=== PATIENT | female | born 1965 | race African-American/Black ===

== ENCOUNTER 2019-03-25 11:49 | Emergency (ER) | payer MEDICARE, MEDICAID ==
[~2019-03-25] VITALS: Ht 154.9 cm; Wt 40.8 kg
[2019-03-25] MEDS ORDERED: LIPITOR 20 MG T20 M1 PO (12:20)
[2019-03-25] MEDS ORDERED: SUPER THERAVIT1 EACH PO (12:21)
[2019-03-25] MEDS ORDERED: CALCIUM MAGNES1 EAC2 PO (12:21)
[2019-03-25] MEDS ORDERED: NASONEX17 GM NASAL (12:21)
[2019-03-25] MEDS ORDERED: IBUPROFEN100 MG/5 M PO (12:23)
[2019-03-25] MEDS ORDERED: SENNA PLUS TAB1 EACH PO (12:23)
[2019-03-25] MEDS ORDERED: MUCINEX600 MG PO (12:23)
[2019-03-25] MEDS ORDERED: MONTELUKAST SODI4 M1 PO (12:24)
[2019-03-25] MEDS ORDERED: LOPERAMIDE2 MG PO (12:28)
[2019-03-25] MEDS ORDERED: VITAMIN C250 MG PO (12:30)
[2019-03-25] MEDS ORDERED: TYLENOL COLD M240 ML PO (12:30)
[2019-03-25] MEDS ORDERED: CLONIDINE HCL0.2 M2 PO (12:31)
[2019-03-25] MEDS ORDERED: COUGH DM30 MG/5 ML PO (12:32)
[2019-03-25] MEDS ORDERED: AZO CRANBERRY1 EAC1 PO (12:32)
[2019-03-25] MEDS ORDERED: TOLTERODINE TART4 MG PO (12:33)
[2019-03-25] MEDS ORDERED: VITAMIN D35000 UNI2 PO (12:34)
[2019-03-25] MEDS ORDERED: DIVALPROEX SOD250 M3 PO (12:35)
[2019-03-25] MEDS ORDERED: TRIAMTERENE/HCT1 CA1 PO (12:37)
[2019-03-25] MEDS ORDERED: TOPIRAMATE50 MG PO (12:38)
[2019-03-25 12:49] LABS: ABSOLUTE MONOCYTES 0.7 thou/uL (0.0-1.2); ABSOLUTE NEUTROPHILS 6.3 thou/uL (1.6-8.1); BASOPHILS 0.4 %; EOSINOPHILS 0.1 %; HEMATOCRIT 40.3 % (37.0-47.0); HEMOGLOBIN 13.5 gm/dL (12.0-15.0); LYMPHOCYTES 12.9 %; MCHC 33.5 g/dL (28.0-37.0); MCV 92.6 fL (80.0-100.0); MONOCYTES 8.6 %; MPV 9.4 fl. (7.2-11.1); NUCLEATED RBCS 0 /100WBC; PLATELET COUNT* 168 thou/uL (150-400); RBC 4.35 mil/uL (4.20-5.00); RDW-CV 17.1 % (10.5-14.5)
[2019-03-25 12:58] LABS: CALCIUM 9.7 mg/dL (8.5-10.1); POTASSIUM 3.8 mmol/L (3.5-5.1)
[2019-03-25 13:02] LABS: APTT 24.5 Seconds (25.0-31.3); INR 1.1; PROTIME 11.4 Seconds (9.20-11.50)
[2019-03-25 13:03] LABS: TOTAL BILIRUBIN 0.4 mg/dL (<0.1-1.0); TOTAL PROTEIN 8.9 g/dL (6.4-8.2)
[2019-03-25] MEDS ORDERED: OXYCODONE HCL 55 MG PO (15:44)
[2019-03-25] MEDS ORDERED: BACLOFEN5 MG PO (15:44)
[2019-03-25 16:02] VITALS: BP 177/95
== END 2019-03-25 16:03 | disposition home or self-care (01) ==
LOC: M.ERS 11:49
PROVIDERS: Personal Emergency Response Attendant
DX: M79.652 Pain in left thigh (principal); M79.89 Other specified soft tissue disorders; Z88.5 Allergy status to narcotic agent; Z88.8 Allergy status to other drugs, medicaments and biological substances

== ENCOUNTER 2019-04-01 11:45 | Inpatient (IN) | payer MEDICARE, MEDICAID ==
[~2019-04-01] VITALS: Ht 152.4 cm; Wt 45.5 kg
[~2019-04-01 11:45] MED LIST: AZO CRANBERRY1 EAC1 PO; BACLOFEN5 MG PO; CALCIUM MAGNES1 EAC2 PO; CLONIDINE HCL0.2 M2 PO; COUGH DM30 MG/5 ML PO; DIVALPROEX SOD250 M3 PO; IBUPROFEN100 MG/5 M PO; LIPITOR 20 MG T20 M1 PO; LOPERAMIDE2 MG PO; MONTELUKAST SODI4 M1 PO; MUCINEX600 MG PO; NASONEX17 GM NASAL; OXYCODONE HCL 55 MG PO; SENNA PLUS TAB1 EACH PO; SUPER THERAVIT1 EACH PO; TOLTERODINE TART4 MG PO; TOPIRAMATE50 MG PO; TRIAMTERENE/HCT1 CA1 PO; TYLENOL COLD M240 ML PO; VITAMIN C250 MG PO; VITAMIN D35000 UNI2 PO
[2019-04-01 11:50] VITALS: BP 113/75
[2019-04-01 12:46] LABS: ABSOLUTE LYMPHOCYTES 0.8 thou/uL (0.8-5.3); ABSOLUTE MONOCYTES 1.4 thou/uL (0.0-1.2); BASOPHILS 0.4 %; EOSINOPHILS 0.1 %; HEMATOCRIT 37.1 % (37.0-47.0); HEMOGLOBIN 12.4 gm/dL (12.0-15.0); MCH 30.4 pg (26.0-34.0); MCHC 33.4 g/dL (28.0-37.0); MCV 91.3 fL (80.0-100.0); MONOCYTES 13.7 %; MPV 8.3 fl. (7.2-11.1); NUCLEATED RBCS 0 /100WBC; PLATELET COUNT* 221 thou/uL (150-400); POLYS 77.8 %; RBC 4.06 mil/uL (4.20-5.00); RDW-CV 16.7 % (10.5-14.5); WBC 10.3 thou/uL (4.0-11.0)
[2019-04-01 12:57] LABS: CALCIUM 8.7 mg/dL (8.5-10.1); CREATININE 0.8 mg/dL (0.6-1.3); POTASSIUM 3.5 mmol/L (3.5-5.1)
[2019-04-01 13:02] LABS: TOTAL BILIRUBIN 0.3 mg/dL (<0.1-1.0); TOTAL PROTEIN 7.1 g/dL (6.4-8.2)
[2019-04-01 16:44] LABS: INR 1.4; PROTIME 14.5 Seconds (9.20-11.50)
--- NOTE | 2019-04-01 17:32 | NUR ---
PT'S GUARDIAN AT PT'S SIDE. PT'S GUARDIAN REQUESTING PT BE TRANSFERED STATING "THAT HER CARE WAS MISHANDLED LAST TIME AND IF SHE NEEDS SURGERY SHE WANTS IT DONE AT A PLACE WHERE THIS TYPE OF SURGERY IS DONE."
[2019-04-01 18:39] VITALS: BP 112/85
[2019-04-01 20:55] VITALS: BP 102/65
[2019-04-01 21:30] VITALS: BP 108/80
--- NOTE | 2019-04-01 22:30 | NUR ---
2100 ALERT DEAF/MUTE FEMALE TO BED 116 ACCOMPANIED BY GUARDIAN MILAGROS ARZATE ADMITTED FROM ER BY CART. VITAL SIGNS STABLE. MEDICATED FOR PAIN. ADMISSION ROUTINES IN PROGRESS. MILAGROS ARZATE WILL STAY WITH PATIENT TONIGHT. COPY OF GUARDIAN PAPERS TO CHART. IDENITY OF GUARDIAN VERIFIED BY PHOTO ID. FALL PRECAUTIONS IN PLACE WITH RAILS UP X 4 REQUESTED AND BED ALARM UTILIZED. PATIENT DOES NOT READ LIPS, THUS ALL COMMUNICATION THRU GUARDIAN USING SIGN LANGUAGE. PATIENT AND GUARDIAN ORIENTED TO BED CONTROLS, LIGHTS AND CALL LIGHT SYSTEM. PLAN OF CARE REVIEWED WITH GUARDIAN WHO ACKNOWLEDGES UNDERSTANDING AND IN AGREEMENT. GUARDIAN PLEASANT AND VERY HELPFUL IN PATIENT CARE. CONTINUE TO MONITOR.
[2019-04-02 04:00] VITALS: BP 117/74
--- NOTE | 2019-04-02 04:32 | NUR ---
PATIENT RESTING QUIETLY FROM ARRIVAL AFTER PAIN MEDICATION. PATIENT CURRENTLY UNABLE TO TURN LONGER THAN FOR LINEN CHANGES AFTER INCONT DUE TO LEFT FEMUR FRACTURE PAIN. NPO PER ORDER EXCEPT HS MEDS WITH SIPS. PATIENT ABLE TO SWALLOW MEDS WHOLE WITH LIQUID PROVIDED WITH STRAW. VITAL SIGNS STABLE. GUARDIAN MILAGROS AT BEDSIDE ASSISTING WITH COMMUNICATION. IVF'S PER ORDER. CONTINUE TO MONITOR.
[2019-04-02 08:27] VITALS: BP 105/61
--- NOTE | 2019-04-02 09:18 | NUR ---
[facility] CALLED AT THIS TIME AND STATES NO BED AVAILABLE FOR TRANSFER AT THIS TIME.
--- NOTE | 2019-04-02 11:32 | NUR ---
CM ASSESSMENT: PAPERWORK ON CHART FROM ER RE TRANSFER TO [facility]. SPOKE TO TRANSFER FACILITY AT [facility]. THERE IS AN ACCEPTING PHYSICIAN BUT NO BEDS AVAILABLE. SPOKE TO MILAGROS WHO IS PT'S DPOA AND PRESENTED OTHER OPTIONS SUCH PROCEEDING WITH SURGERY HERE OR TRANSFERRING TO ANOTHER FACILITY INSTEAD OF [facility] SO THAT SURGERY IS NOT FURTHER DELAYED. MILAGROS STATES SHE WILL RESEARCH ORTHO AT BOTH FACILITIES AND CALL BACK WITH A PREFERENCE SOON
--- NOTE | 2019-04-02 13:02 | NUR ---
RECEIVED CALL FROM MILAGROS WHO IS PT'S DPOA. SHE SAID SHE HAS DECIDED SHE WOULD LIKE TO PROCEED WITH PT HAVING SURGERY HERE AT [facility] BUT WOULD LIKE TO RECEIVE A PHONE CALL FROM SURGEON WHEN IT IS DECIDED. WILL NOTIFY DR URIBE AND NURSE
--- NOTE | 2019-04-02 13:16 | NUR ---
Nutrition: Pt admitted s/p Lt femur FX. H/o cerebral palsy, deaf, mute. BG 164, alb 2, prealb 8.4. Severely depleted protein stores. Pt is currently NPO. Wt is 89#. Seen for low BMI. Per notes, pt will be transferring to [facility]. No nutrition interventions at this timesince pt still NPO and transferring. Recommend oral supplement for added kcals and protein once pt is clinically able to take po. Moderate risk.
--- NOTE | 2019-04-02 15:34 | NUR ---
PT SOMEWHAT PROGRESSING TOWARDS GOALS THIS SHIFT. CASE MANAGEMENT DISCUSSED PLAN OF CARE WITH GUARDIAN, AND D/T [facility] NOT HAVING ANY BEDS AVAILABLE, THE GUARDIAN HAS DECIDED TO LEAVE PT HERE AT [facility] AND FOR OUR ORTHO SURGEONS TO OPERATE HERE. ORTHO PHYSICIAN NOTIFIED ALTHOUGH UNABLE TO COMPLETE SURGERY THIS AFTERNOON. SCHEDULED FOR TOMORROW AM. PT HAS CARETAKERS AT BEDSIDE THAT ARE ABLE TO COMMUNICATE EFFECTIVELY WITH PT. CARETAKERS EDUCATED TO NOTIFY STAFF IF PT EXPRESSES ANY NEEDS. PT TO BE NPO AFTER MIDNIGHT. NO OTHER CONCERNS AT THIS TIME. CLWR. WCTM.
--- NOTE | 2019-04-02 15:56 | NUR ---
DR. PARSONS CALLED THIS RN AND REQUESTED THE GUARDIAN CONTACT HIM TO DISCUSS PLAN OF CARE.
[2019-04-02 16:00] VITALS: BP 142/66
[2019-04-02 20:07] VITALS: BP 105/81
[2019-04-02 20:33] VITALS: BP 106/56
--- NOTE | 2019-04-03 05:37 | NUR ---
PATIENT HAD GUARDIAN IN ROOM ALL NIGHT. SHE IS A Q2 TURN AND INCONTINENT USING PADS UNDER FOR URINATION. SHE RECEIVED FENTANYL SEVERAL TIMES FOR APPARENT PAIN AND FLUIDS ON AT 100 MLS ALL SHIFT. HAS BEEN NPO SINCE MIDNIGHT BUT NO ORDERS YET FOR SURGERY. WILL CONTINUE PLAN OF CARE.
[2019-04-03 08:00] VITALS: BP 116/70
--- NOTE | 2019-04-03 10:47 | NUR ---
SPOKE WITH PT'S GUARDIAN MILAGROS IN ROOM. DISCUSSED THAT PT WILL NEED TO GO TO SNU UPON DC. MILAGROS DOES NOT HAVE A PREFERENCE WITH FACILITIES AND STATES SHE WANTS ONE THAT IS COMFORTABLE WITH SPECIAL NEEDS ADULTS AND IS CLOSE TO FACILITY
--- NOTE | 2019-04-03 12:23 | NUR ---
ASSUMED CARE OF PATIENT THIS AM AT 0730. PATIENT IS AWAKE,ALERT AND APPEARS IN PAIN THIS AM. PATIENT IS GRIMMACING. CAREGIVER IS AT THE BEDSIDE. PATIENT MEDICATED FOR PAIN Q 2 HR AND REPOSITIONED. KEPT NPO FOR PLANNED SURGERY. IV FLUIDS INFUSING. DR URIBE PAGED FOR ORDERS FOR CHANGE IN PAIN MEDICATION. WILL CONTINUED TO ASSESS PAIN AND COMFORT.
--- NOTE | 2019-04-03 16:05 | NUR ---
LEVEL [address] URIBE AWARE. NO DC PLAN FOR THE NEXT COUPLE DAYS. CM WILL CONTINUE TO FOLLOW
[2019-04-03 18:34] LABS: BE -4.5 mmol/L (-2 to +3); PO2 91.4 mmHg (75.0-100.0)
[2019-04-03 18:37] LABS: PCO2 54.5 mmHg (35.0-45.0); pH 7.239 (7.340-7.450)
[2019-04-03 19:47] VITALS: BP 112/65
[2019-04-03 23:04] VITALS: BP 118/81
[2019-04-04] VITALS (28 sets, daily range): BP systolic 83–145; BP diastolic 42–91
[2019-04-04 02:51] LABS: HEMATOCRIT 22.7 % (37.0-47.0)
[2019-04-04 02:58] LABS: HEMOGLOBIN 7.6 gm/dL (12.0-15.0)
--- NOTE | 2019-04-04 05:19 | NUR ---
VITALS STABLE, TEMP MAX 100.9F TREATED WITH TYLENOL. PATIENT MOANS AND GROANS FROM TIME TO TIME, IS NONVERBAL AND UNABLE TO EXPRESS SELF. VERY SMALL BLOOD NOTED TO L HIP SITE OVER DRESSING THIS AM. HIPS REMAIN ABDUCTED VIA BRACE. TYSON PLACED PER ORDER. 400CC, YELLOW UOP. NO BM. Q2 TURNS FOR SKIN INTEGRITY. GUARDIAN REMAINS IN ROOM FOR COMFORT. WILL CONTINUE MONITORING.
[2019-04-04 08:26] LABS: BE -2.1 mmol/L (-2 to +3); PCO2 39.6 mmHg (35.0-45.0); PO2 86.4 mmHg (75.0-100.0); pH 7.379 (7.340-7.450)
--- NOTE | 2019-04-04 10:30 | NUR ---
INT ROUNDS: PT TRANSFERRED TO ICU POST SURGERY YESTERDAY. PT IS DEAF/MUTE, MET WITH GUARDIAN/MILAGROS AT BEDSIDE TO DISCUSS DC PLANNING/[id number]. MILAGROS STATED PT LIVES IN APT WITH A ROOMMATE AND 24HR CAREGIVERS THRU [facility]. SHE IS NORMALLY ABLE TO TRANSFER SELF FROM BED TO W/C AND TOILET. ABLE TO ASSIST WITH HER TOILETING, BATHING, DRESSING AND COMMUNICATE HER NEEDS WITH SOME SIGN LANGUAGE AND GESTURING. HAS HX OF CP AND DD. PT HAS NOT BEEN TO SNF IN PAST. MILAGROS IS INTERESTED IN THAT FOR REHAB BUT WANTING TO BE SURE FACILITY IS 'RIGHT' FOR PT. DISCUSSED POSSIBLE OPTIONS AND GAVE LIST. ENCOURAGED HER TO USE MEDICARE.GOV WELL. QUESTIONS ANSWERED FOR [id number], ONCE FACILITY IS CHOSEN WILL PURSUE. DO NOT ANTICIPATE PT WILL NEED MOVE THEN 30D. WILL FOLLOW
[2019-04-04] MEDS ORDERED: SINGULAIR 10 MG10 MG PO (10:56)
[2019-04-04] MEDS ORDERED: TRIPLE ANTIBIO1 EAC1 TOP (11:03)
[2019-04-04] MEDS ORDERED: EPSOM SALT454 GM TOP (11:06)
[2019-04-04] MEDS ORDERED: AZO CRANBERRY1 EAC1 PO (11:08)
[2019-04-04] MEDS ORDERED: TUSSIN CF COUG118 ML PO (11:10)
[2019-04-04 11:45] LABS: INR 1.5; PROTIME 14.7 Seconds (9.20-11.50)
[2019-04-04 11:50] LABS: ALBUMIN 1.4 g/dL (3.4-5.0); CALCIUM 7.5 mg/dL (8.5-10.1); CREATININE 0.6 mg/dL (0.6-1.3); POTASSIUM 4.2 mmol/L (3.5-5.1); TOTAL BILIRUBIN 0.2 mg/dL (<0.1-1.0); TOTAL PROTEIN 4.7 g/dL (6.4-8.2)
--- NOTE | 2019-04-04 14:11 | EKG ---
[place] [address] ELECTROCARDIOGRAM REPORT Name: JIN MATAMOROS Room: [address] ADM IN .R.#: [id number] Admission: 04/01/19 Attend Phys: Isabella Quinn Discharge: Date of : 63 Report #: [id number] THIS REPORT FOR: //name// [facility] Test Date: 2019-04-04 Test Time: 12:22:57 Pat Name: JIN MATAMOROS Department: Room: [address] Gender: F Medical Illustrator: [facility] : 1965 Requested By: Obdulio Monzon Order Number: [id number] Yaneli MD: Bayron Osman Measurements Intervals Hartman Rate: 116 P: -16 CO: 158 QRS: 62 QRSD: 75 T: 6 QT: 281 QTc: 391 Interpretive Statements Sinus tachycardia Low voltage, extremity leads Consider RVH or posterior infarct Artifact in lead(s) II,III,aVR,aVL,aVF,V1,V2,V3,V4 and baseline wander in lead (s) II,V1,V2 No previous ECG available for comparison Electronically Signed On 04-04-2019 14:10:45 THERAPIST by Bayron Osman [email or web address] <ELECTRONICALLY SIGNED> By: Bayron Osman MD, FACC 04/04/19 1410 1222 1222 Bayron Osman MD, [facility] /EPI
--- NOTE | 2019-04-04 15:35 | 2DMMODE ---
[place] [address] 2 D/M-MODE ECHOCARDIOGRAM Name: JIN MATAMOROS Room: [address] IN [facility]#: [id number] Admission: 04/01/19 Attend Phys: Obdulio Monzon Discharge: Date of : 63 Date of Service: 04/04/19 1534 Report #: [id number] THIS REPORT FOR: //name// APPROVED REPORT Study performed: 04/04/2019 14:34:35 EXAM: Comprehensive 2D, Doppler, and color-flow Echocardiogram Patient Location: In-Patient Room #: [facility] [place] Status: routine BSA: 1.45 HR: 131 bpm BP: 125/56 mmHg Rhythm: NSR Other Information Study Quality: Good Indications Abnormal ECG 2D Dimensions IVSd: 7.66 (7-11mm) LVOT Diam: 17.96 (18-24mm) LVDd: 29.85 mm PWd: 7.05 (7-11mm) Ascending Ao: 23.74 (22-36mm) LVDs: 22.44 (25-40mm) Aortic Root: 23.51 mm Volumes Left Atrial Volume (Systole) LA ESV Index: 15.10 mL/m2 Aortic Valve AoV Peak Brijesh.: 1.13 m/s AO Peak Gr.: 5.12 mmHg LVOT Max P.17 mmHg AO Mean Gr.: 2.52 mmHg LVOT Mean P.17 mmHg LVOT Max V: 1.02 m/s AO V2 VTI: 14.04 cm LVOT Mean V: 0.68 m/s ENMANUEL (VTI): 2.39 cm2 LVOT V1 VTI: 13.21 cm TDI Medial E' Brijesh.: 0.11 m/s Lateral E' Brijesh.: 0.11 m/[place] [address] 2 D/M-MODE ECHOCARDIOGRAM Name: JIN MATAMOROS Room: [address] IN [facility]#: [id number] Admission: 04/01/19 Attend Phys: Obdulio Monzon Discharge: Date of : 63 Date of Service: 04/04/19 1534 Report #: [id number] Pulmonary Valve PV Peak Brijesh.: 1.15 m/s PV Peak Gr.: 5.25 mmHg Left Ventricle The left ventricle is normal size. There is normal LV segmental wall motion. There is normal left ventricular wall thickness. Left ventricular systolic function is normal. LVEF is 65-70%. Grade I - abnormal relaxation pattern. Right Ventricle The right ventricle is normal size. The right ventricular systolic function is normal. Atria The left atrium size is normal. The right atrium size is normal. Aortic Valve The aortic valve is normal in structure. No aortic regurgitation is present. There is no aortic valvular stenosis. Mitral Valve The mitral valve is normal in structure. There is no mitral valve regurgitation noted. No evidence of mitral valve stenosis. Tricuspid Valve The tricuspid valve is normal in structure. Unable to assess PA pressure. Trace tricuspid regurgitation. Pulmonic Valve The pulmonary valve is normal in structure. There is no pulmonic valvular regurgitation. Great Vessels The aortic root is normal in size. IVC is normal in size and collapses >50% with inspiration. Pericardium There is no pericardial effusion. <Conclusion> The left ventricle is normal size. There is normal left ventricular wall thickness. Left ventricular [place] [address] 2 D/M-MODE ECHOCARDIOGRAM Name: JIN MATAMOROS Room: [address] IN [facility].#: [id number] Admission: 04/01/19 Attend Phys: Obdulio Monzon Discharge: Date of : 63 Date of Service: 04/04/19 1534 Report #: [id number] LVEF is 65-70%. Grade I - abnormal relaxation pattern. <ELECTRONICALLY SIGNED> By: Abimael Hoover MD, [facility] 04/04/19 1534 1534 1534 Abimael Hoover MD, FACC /INF
[2019-04-04 17:19] LABS: HEMATOCRIT 18.8 % (37.0-47.0); HEMOGLOBIN 6.3 gm/dL (12.0-15.0)
--- NOTE | 2019-04-04 18:59 | NUR ---
PT ASSESSMENT CHARTED. CARDIOLOGY CONSULTED FOR HR IN 170'S. EKG OBTAINED ST. PT'S PAIN BETTER CONTROLLED WITH PRN DILAUDID. PT'S CAREGIVER IN ROOM AND ABLE TO COMMUNICATE BETWEEN NURSE/PT. HGB 6.4 CALLED TO [facility]TH[facility]. ORDER RECEIVED FOR 2 UNIT PRBC TRANSFUSION. PT'S GUARDIAN CALLED AND PHONE CONSENT OBTAINED FOR BLOOD TRANSFUSION. Q2H TURNS TO MAINTAIN SKIN INTEGRITY. DIET INCREASED WITH MINIMAL INTAKE TODAY. NO OTHER CONCERNS AT THIS TIME.
[2019-04-05] VITALS (39 sets, daily range): BP systolic 94–146; BP diastolic 40–100
[2019-04-05 04:16] LABS: PROTIME 22.5 Seconds (9.20-11.50)
[2019-04-05 04:28] LABS: INR 2.3
[2019-04-05 05:02] LABS: ALBUMIN 1.5 g/dL (3.4-5.0); CALCIUM 7.3 mg/dL (8.5-10.1); CREATININE 0.5 mg/dL (0.6-1.3); MAGNESIUM 1.5 mg/dL (1.8-2.4); POTASSIUM 3.9 mmol/L (3.5-5.1); TOTAL BILIRUBIN 0.6 mg/dL (<0.1-1.0); TOTAL PROTEIN 4.6 g/dL (6.4-8.2)
--- NOTE | 2019-04-05 06:22 | NUR ---
VITALS STABLE, TEMP MAX 101.1F. CAREGIVER DID REPORT PT NORMALLY RUNS HIGH ON TEMP, BUT LIKES TO BE BUNDLED UP ANYWAY. PT RECEIVED 2 UNITS OF RBC PER ORDER, TOLERATED WELL. NO BM, 200ML UOP, CONCENTRATED. NPO THIS AM FOR CT CONTRAST LATER THIS MORNING. OTHERWISE UNEVENTFUL NIGHT. PT SLEPT THROUGH MOST OF THE NIGHT. MOANS WHEN IN PAIN, RELIEF WITH MEDS. Q2 TURNS FOR SKIN INTEGRITY. L HIP SX SITE WITH NO CHANGE. WILL CONTINUE MONITORING.
[2019-04-05 06:25] LABS: HEMATOCRIT 30.9 % (37.0-47.0); MCH 30.6 pg (26.0-34.0); MCHC 34.4 g/dL (28.0-37.0); MCV 89.1 fL (80.0-100.0); RBC 3.47 mil/uL (4.20-5.00); RDW-CV 15.6 % (10.5-14.5); WBC 15.2 thou/uL (4.0-11.0)
[2019-04-05 06:37] LABS: HEMOGLOBIN 10.6 gm/dL (12.0-15.0)
--- NOTE | 2019-04-05 10:00 | NUR ---
INT ROUNDS: NO CG IN ROOM. PT RECEIVED BLOOD TRANSFUSION AND HGB UP TODAY. DISCUSSED POSSIBLE REHAB WITH NURSING, WILL DISCUSS WITH AND FOLLOW
[2019-04-05 16:11] LABS: HEMATOCRIT 27.1 % (37.0-47.0); HEMOGLOBIN 9.2 gm/dL (12.0-15.0)
[2019-04-05 16:20] LABS: CALCIUM 8.2 mg/dL (8.5-10.1); CREATININE 0.6 mg/dL (0.6-1.3); POTASSIUM 3.2 mmol/L (3.5-5.1)
[2019-04-05 16:48] LABS: URINE BILIRUBIN NEGATIVE (Negative); URINE BLOOD 2+ (Negative); URINE CLARITY CLEAR; URINE COLOR YELLOW; URINE GLUCOSE-RANDOM NEGATIVE (Negative); URINE KETONES NEGATIVE (Negative); URINE LEUKOCYTES-REFLEX NEGATIVE (Negative); URINE NITRITE-REFLEX NEGATIVE (Negative); URINE PROTEIN NEGATIVE (Negative); URINE SPECIFIC GRAVITY <= 1.005 (1.005-1.030); URINE UROBILINOGEN 0.2 E.U./dl (0.2-1.0)
[2019-04-05 16:59] LABS: BACTERIA-REFLEX 1-9 Few /HPF (None Seen); CASTS None Seen /LPF (None Seen); CRYSTALS None Seen /LPF (None Seen); SQUAMOUS 0-3 Few /LPF (0-3); URINE RBC 0-2 Rare /HPF (0-2); URINE WBC-REFLEX 0-5 Rare /HPF (0-5)
--- NOTE | 2019-04-05 20:04 | NUR ---
TWO UNITS OF FFP TRANSFUSED PER ORDERS. CT CHEST/ABD DONE. GI AND SURGERY CONSULTED. GI PLANNING ON DOING EGD, COLONOSCOPY TONIGHT. GUARDIAN AT THE BEDSIDE. DILAUDID 0.5MG AMINISTERED TWICE FOR PAIN, USES SIGN LANGUAGE FOR EXPRESSING NEEDS. MAG REPLACED PER ORDERS. NS CONTD AT 100 MLS/HR.
--- NOTE | 2019-04-05 20:28 | NUR ---
PATIENT TO OR AT THIS TIME ACCOMPANIED BY RN AND PHYSICIAN. CONSENT AND CHART WITH PT.
--- NOTE | 2019-04-05 23:06 | NUR ---
PT TO ICU ROOM 1 AT 2255 ACCOMPANIED BY RNs AND ON THE MONITOR. VITALS STABLE, AFEBRILE AT THIS TIME. PT REMAINS ON 2L O2 PER NC. SINUS TACH ON THE MONITOR. DENIES PAIN TO GUARDIAN AT THIS TIME. ORDERS RECEIVED. WILL CONTINUE MONITORING.
[2019-04-06] VITALS (32 sets, daily range): BP systolic 117–158; BP diastolic 60–93
[2019-04-06 02:39] LABS: HEMATOCRIT 26.1 % (37.0-47.0); MCH 30.9 pg (26.0-34.0); MCHC 34.5 g/dL (28.0-37.0); MCV 89.7 fL (80.0-100.0); MPV 7.7 fl. (7.2-11.1); NUCLEATED RBCS 0 /100WBC; PLATELET COUNT* 184 thou/uL (150-400); RBC 2.91 mil/uL (4.20-5.00); RDW-CV 15.5 % (10.5-14.5); WBC 9.4 thou/uL (4.0-11.0)
[2019-04-06 02:49] LABS: INR 1.5; PROTIME 15.2 Seconds (9.20-11.50)
[2019-04-06 02:53] LABS: ALBUMIN 3.1 g/dL (3.4-5.0); CALCIUM 8.2 mg/dL (8.5-10.1); CREATININE 0.5 mg/dL (0.6-1.3); MAGNESIUM 2.6 mg/dL (1.8-2.4); PHOSPHORUS* 1.9 mg/dL (2.5-4.9); POTASSIUM 3.1 mmol/L (3.5-5.1); TOTAL BILIRUBIN 0.9 mg/dL (<0.1-1.0); TOTAL PROTEIN 5.9 g/dL (6.4-8.2)
--- NOTE | 2019-04-06 05:01 | NUR ---
VITALS STABLE, LOW GRADE FEVER. PT COMFORTABLE IN BED, SLEPT ON AND OFF THROUGH THE NIGHT. CDT TO LIS, MINIMAL OUTPUT. NO BM, 1800 CC LIGHT YELLOW UOP. PT ON RA WITH SPO2 >90%. ABDUCTION PILLOW REMAINS IN PLACE. Q2 TURNS FOR SKIN INTEGRITY. WILL CONTINUE MONITORING.
[2019-04-06 06:48] LABS: ABSOLUTE LYMPHOCYTES 0.9 thou/uL (0.8-5.3); ABSOLUTE MONOCYTES 1.8 thou/uL (0.0-1.2); ABSOLUTE NEUTROPHILS 6.7 thou/uL (1.6-8.1); MYELOCYTES 1 %; PLATELET ESTIMATE ADEQUATE
[2019-04-06 06:49] LABS: ANISOCYTOSIS 1+; OVALOCYTES Occasional; POIKILOCYTOSIS 1+
--- NOTE | 2019-04-06 09:15 | CON ---
[address] [address] CONSULTATION Name: JIN MATAMOROS Room: [address] IN [facility]#: [id number] Admission: 04/01/19 Attend Phys: Isabella Quinn Discharge: Date of : 63 Report #: [id number] THIS REPORT FOR: //name// CC: FAM unknown Obdulio Monzon VISITING CLINIC DATE OF SERVICE: 04/05/2019 INFECTIOUS DISEASE CONSULTATION ATTENDING PHYSICIAN: Obdulio Monzon MD REASON FOR EVALUATION: Postoperative fevers, left intertrochanteric hip fracture. HISTORY OF PRESENT ILLNESS: Chart reviewed, patient examined. 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 This she has left nonambulatory, apparently was found at a facility on the floor, complained of pain associated with the site. This was confirmed to have displaced intertrochanteric fracture of the left femur, underwent hip replacement on the 04/03/2019 and developed fevers overnight. She is unable to give any details of the history. She is fairly alert at this point. Evaluation was undertaken including imaging tests which raise a question of bilateral basilar pneumonitis. Did have elevated white count of 15.2 and she was tachycardic with borderline hypotension, this thus far not required pressor support. She does have marginal urine output as well. She was started empirically on therapy with piperacillin and tazobactam. Presently, she is afebrile. ALLERGIES: ALPRAZOLAM AND CODEINE. CURRENT MEDICATIONS: Include Zosyn, octreotide, hydromorphone, metoprolol, p.r.n. analgesics, antiemetics, divalproex. PAST MEDICAL HISTORY: As noted above, she has cerebral palsies. She is a rsa-[id number]-rbiwor, deaf, mute. No history of seizures. SOCIAL HISTORY: Nonsmoker, no ethanol, no illicit drug use. FAMILY HISTORY: Noncontributory. REVIEW OF SYSTEMS: Not reliably obtained. PHYSICAL EXAMINATION: GENERAL: She is alert, makes eye contact, mild to moderate distress, [place] [address] CONSULTATION Name: MATAMOROSJIN Room: [address] IN [facility]#: [id number] Admission: 04/01/19 Attend Phys: Isabella Quinn Discharge: Date of : 63 Report #: [id number] supine in bed. VITAL SIGNS: T-max overnight 101.1, was 98.6 most recently; pulse 120; respirations 14; blood pressure 106/61. SKIN: Warm, dry. No rashes. HEENT: Normocephalic. Extraocular muscles intact. NECK: Supple. LUNGS: Scattered coarse breath sounds bilaterally. HEART: Tachycardic, pronounced S1, S2. I do not appreciate any murmur. ABDOMEN: Generally soft, nontender. EXTREMITIES: She has got a dressing over her left hip. There is small amount of evident bloody drainage staining. GENITOURINARY AND RECTAL: Deferred. LABORATORY DATA: Lactic acid 1.9. Electrolytes: Sodium 137, potassium 3.2, chloride 103, bicarbonate 25, anion gap of 9, BUN and creatinine of 6 and 0.6, glucose of 114. CT of the chest as noted above describes bilateral infiltrates, most compatible with pneumonia, aspiration cannot be excluded; bilateral small pleural effusions. CT of the abdomen and pelvis confirms bibasilar atelectasis and pneumonia, also notes marked gaseous distention of the colon without focal wall thickening, question of a severe ileus. CBC: White count of 15.2, H and H of 10.6 and 39.9. It is notable that hemoglobin had been down to 6.3. Liver functions unremarkable. Albumin of 1.5, total protein 4.6. Estimated GFR 155. Prealbumin of 5.8. Sed rate of 19. ASSESSMENT AND PLAN: Postoperative fevers. I think all likelihood is may well have pneumonitis. At the resolution of fevers without influenza, if they recur, would go ahead and check antigen. We will check pneumococcal antigen as well. Continue piperacillin and tazobactam for now. Collect the urinalysis with the event may be that different typical kimberly causing urinary tract infection versus pneumonitis. She is on broad-spectrum therapy, however. <ELECTRONICALLY SIGNED> By: Ben Avalos MD 04/06/19 0915 1642 [id number] Avalos MD /nt
--- NOTE | 2019-04-06 09:40 | NUR ---
0637 ASSUMED CARE OF PATIENT. PLEASE SEE DOCUMENTED ASSESSMENT. SEE CHARTING FOR SEDATION VACATION AND VENT WEANING TRIAL
--- NOTE | 2019-04-06 09:43 | NUR ---
0713 ASSUMED CARE OF PATIENT. PLEASE SEE DOCUMENTED ASSESSMENT. GUARDIAN IS AT BEDSIDE. PT CURRENTLY ON ROOM AIR. SEEN BY DR NAQVI
--- NOTE | 2019-04-06 11:53 | NUR ---
1130 DR DUMAS TO SEE PATIENT. PATIENT CAN NOW BE TELE STATUS. COLON TUBE CLAMPED AND LIS DISCONTINUED. OXYGEN RESUMED AT 2LPM DUE TO DESAT AFTER APIN MED.
--- NOTE | 2019-04-06 12:31 | NUR ---
PT TO CHAIR WITH PT
--- NOTE | 2019-04-06 17:21 | NUR ---
PATIENT PROGRESSING TOWARDS GOALS. IS NOW TELE STATUS AND WILL MOVE OUT OF ICU. DIET RESUMED. UP TO CHAIR FOR ABOUT 1 HOUR 15 MINUTES. COLONIC TUBE IS NOW CLAMPED WITH FLUSHES ORDERED. ABDOMINAL FILM DONE. RETURNED TO 2LPM NASAL CANNULA DESATS WHEN ASLEEP OR AFTER PAIN MEDICATION. GUARDIAN OR CAREGIVER PRESENT ALL SHIFT AND UPDATED ON PLAN OF CARE.
--- NOTE | 2019-04-06 21:11 | NUR ---
TRANSFERRED TO 223 VIA BED. AXILLARY TEMP 101.9 AT 1999, PRN TYLENOL GIVEN ORDERED; RECHECK AT 2099 101.7. PT MOANING, PRN DILAUDID GIVEN ORDERED. LARGE AMOUNT LIQUID DARK BROWN STOOL ABSORBED INTO CHUX PAD, SKIN CARE PROVIDED. REPORT GIVEN TO ARIN MEDINA. ALL PERSONAL BELONGINGS AND MEDICATIONS SENT WITH PT.
[2019-04-07 00:05] VITALS: BP 144/90
--- NOTE | 2019-04-07 01:05 | NUR ---
called left a message for Pamela clifford to call back reguarding whether interpretation services would be benefical for the patient.
[2019-04-07 04:21] VITALS: BP 144/85
[2019-04-07 05:45] LABS: ABSOLUTE EOSINOPHILS 0.1 thou/uL (0.0-0.7); ABSOLUTE LYMPHOCYTES 1.5 thou/uL (0.8-5.3); ABSOLUTE MONOCYTES 2.1 thou/uL (0.0-1.2); ABSOLUTE NEUTROPHILS 7.8 thou/uL (1.6-8.1); BASOPHILS 0.2 %; EOSINOPHILS 0.6 %; HEMATOCRIT 23.5 % (37.0-47.0); LYMPHOCYTES 13.2 %; MCH 30.3 pg (26.0-34.0); MCHC 34.1 g/dL (28.0-37.0); MONOCYTES 17.9 %; MPV 8.1 fl. (7.2-11.1); NUCLEATED RBCS 1 /100WBC; PLATELET COUNT* 214 thou/uL (150-400); POLYS 68.1 %; RBC 2.65 mil/uL (4.20-5.00); RDW-CV 15.6 % (10.5-14.5); WBC 11.5 thou/uL (4.0-11.0)
--- NOTE | 2019-04-07 06:01 | NUR ---
PATIENT TRANSFERRED FROM ICU WITH ALL BELONGINGS APPROX 210. CARE PROCESS MANAGER APPLIED, TRACING ST 140-150'S. DR NAQVI NOTIFIED, NO NEW ORDERS OBTAINED. INSTRUCTED TO TREAT PAIN AND PROVIDE PATIENT WITH LOW STIMULUS ENVIRONMENT DUE TO ANXIETY. PATIENT ABLE TO USE SOME SIGN LANGUAGE TO COMMUNICATE WITH STAFF BUT ACCORDING TO CAREGIVER, SOME OF HER SIGN LANGUAGE IS MODIFIED. CAREGIVER STATES "A AMMONIUM SULFATE OPERATOR MAY NOT BE MUCH HELP." CAREGIVER SAYS SHE WILL BE UP HERE IN THE AM. PATIENT GRABBING LEG AND HIP AND MOANING- PAIN TREATED WITH IV DILAUDID WITH RELIEF. TOLERATING COLONIC FLUSHES WITH SOME BROWN LIQUID STOOL AFTERWARDS. INCONTINENCE PAD CHANGED AND DIANA CARE PROVIDED.
[2019-04-07 06:04] LABS: CALCIUM 8.1 mg/dL (8.5-10.1); CREATININE 0.5 mg/dL (0.6-1.3); MAGNESIUM 1.9 mg/dL (1.8-2.4)
[2019-04-07 06:44] LABS: POTASSIUM 2.8 mmol/L (3.5-5.1)
[2019-04-07 08:15] VITALS: BP 130/73; BP 159/99
[2019-04-07 12:17] VITALS: BP 130/73
[2019-04-07 20:00] VITALS: BP 149/97
--- NOTE | 2019-04-07 20:16 | NUR ---
I ASSUMED CARE OF THE PATIENT AT 0700. SHE IS DEAF AND MUTE AND ALERT. BED IS IN THE LOW LOCKED POSITION AND CALL LIGHT IS IN REACH. PATIENT NEEDS ARE MET DURING HOURLY ROUNDING. PAIN IS MANAGED WITH PRN MEDS. DAVID IS AT THE BEDSIDE MOST OF THE MORNING. SHE IS A FEEDER AND A ST EVALUATION WAS PLACED. POTASSIUM WAS REPLACED. PATIENT WAS TURNED EVERY TWO HOURS AND COLONIC DECOMPRESSION TOOK PLACE AT 0900 AND 1300 WITH ONLY LIQUID RETURN. KUB WAS COMPLETED EARLY TODAY. SHE TAKES HER PILLS WHOLE WITH APPLE JUICE. SURGICAL DRESSING IS C/D/I WITH TWO SMALL SHADOWED AREAS. PRN MEDS WERE GIVEN FOR TACHYCARDIA. TYSON IS D/D WITH ADEQUATE OUTPUT. PATIENT WAS TAKEN TO CT AND IS AWAITING RESULTS. NEW ORDERS HAVE BEEN OBTAINED IF NEEDED POST RESULTS. LAURIE HAS BEEN INFORMED OF CT/BREATHING ISSUE. JUST AFTER DINNER, PATIENT WAS REMOVING HER OXYGEN NC AND REFUSED TO PUT IT BACK ON. AFTER ABOUT 5 MINUTES, WE USED A NONREBREATHER AND CONTACTED RT. PATIENT DROPPED TO 44% ON ROOM AIR. AYDE IN CT WAS CONTACTED MULTIPLE TIMES IN REGARDS TO PATIENT'S URGENT ORDER. HOUSE SUP WAS CONTACTED. CT WAS COMPLETED. REPORT GIVEN TO SEJAL AND ANALI.
[2019-04-08] VITALS (7 sets, daily range): BP systolic 105–143; BP diastolic 66–89
[2019-04-08 05:46] LABS: ABSOLUTE EOSINOPHILS 0.2 thou/uL (0.0-0.7); ABSOLUTE LYMPHOCYTES 0.8 thou/uL (0.8-5.3); ABSOLUTE MONOCYTES 2.8 thou/uL (0.0-1.2); ABSOLUTE NEUTROPHILS 9.5 thou/uL (1.6-8.1); BASOPHILS 0.2 %; EOSINOPHILS 1.2 %; HEMATOCRIT 26.9 % (37.0-47.0); HEMOGLOBIN 9.2 gm/dL (12.0-15.0); LYMPHOCYTES 5.9 %; MCH 30.4 pg (26.0-34.0); MCHC 34.2 g/dL (28.0-37.0); MCV 88.9 fL (80.0-100.0); MONOCYTES 21.4 %; MPV 7.6 fl. (7.2-11.1); NUCLEATED RBCS 1 /100WBC; PLATELET COUNT* 247 thou/uL (150-400); POLYS 71.3 %; RBC 3.03 mil/uL (4.20-5.00); RDW-CV 15.5 % (10.5-14.5); WBC 13.3 thou/uL (4.0-11.0)
[2019-04-08 06:16] LABS: ALBUMIN 4.4 g/dL (3.4-5.0); CALCIUM 9.3 mg/dL (8.5-10.1); CREATININE 0.5 mg/dL (0.6-1.3); MAGNESIUM 1.6 mg/dL (1.8-2.4); PHOSPHORUS* 1.1 mg/dL (2.5-4.9); POTASSIUM 3.5 mmol/L (3.5-5.1); TOTAL BILIRUBIN 1.1 mg/dL (<0.1-1.0); TOTAL PROTEIN 6.8 g/dL (6.4-8.2)
--- NOTE | 2019-04-08 07:00 | NUR ---
PROGRESSING TOWARDS GOALS, ABLE TO TITRATE OXYGEN DOWN FROM 10L TO 3L THIS AM, SAO2 =>95%, LASIX 80MG IVP X1 EFFECTIVE FOR IV DIRUESIS, 6100CC YELLOW URINE OUT VIA TYSON CATHETER, DRESSING LEFT HIP INTACT, X2 SMALL AREAS EXUDATE TO DRESSING, DILAUDID 0.5MG IVP GIVEN X1 FOR LEFT HIP PAIN, DILAUDID HELPFUL FOR PAIN MANAGEMENT, PT RESTING QUIELTY WITH EYES CLOSED AFTER ADMINISTERATION, IV FLUIDS STOPPPED PER ORDER, NO ADVERSE EFFECTS IV ABT'S NOTED, SAFETY MAINTAINED.
--- NOTE | 2019-04-08 11:15 | NUR ---
MICHAEL SPOKE W/MILAGROS, SEJAL, RE SIGNATURES. MILAGROS STATES [facility] AFTER 5PM WHEN SHE LEAVES WORK TO SIGN PAPER. MICHAEL INFORMED MILAGROS LEVEL ONE WILL BE AT NURSING STATION W/PT NURSE.
[2019-04-08 11:45] LABS: URINE BILIRUBIN NEGATIVE (Negative); URINE BLOOD 2+ (Negative); URINE CLARITY CLEAR; URINE COLOR YELLOW; URINE GLUCOSE-RANDOM NEGATIVE (Negative); URINE KETONES NEGATIVE (Negative); URINE LEUKOCYTES-REFLEX NEGATIVE (Negative); URINE NITRITE-REFLEX NEGATIVE (Negative); URINE PROTEIN 1+ (Negative)
[2019-04-08 11:53] LABS: BACTERIA-REFLEX 1-9 Few /HPF (None Seen); CASTS None Seen /LPF (None Seen); CRYSTALS None Seen /LPF (None Seen); MUCUS None Seen strn/LPF (None Seen); SQUAMOUS 4-10 Moderate /LPF (0-3); URINE RBC 3-10 Few /HPF (0-2); URINE WBC-REFLEX 0-5 Rare /HPF (0-5)
--- NOTE | 2019-04-08 12:09 | NUR ---
FAXED REFERRALS TO [facility]TAKE AT [phone]; [phone] AND TO [facility] AT [phone]; [phone]. WILL FOLLOW TO CONFIRM BOTH RECEIVED AND BED AVAILABILITY.
--- NOTE | 2019-04-08 14:19 | NUR ---
JUANCHO FROM [facility] CALLED TO INFORM THEY ARE UNABLE TO ACCEPT PT D/T INABILITY TO ADDRESS PT'S NEEDS.
--- NOTE | 2019-04-08 16:43 | NUR ---
ASSUMED PT CARE REPORT RECEIVED FROM NURSE PT IS ALERT AWAKE, MUTE AND DEAF. SHE MOANS WHEN IN PAIN. DILAUDID GIVEN ORDERED. VSS.EXCEPT FOR INCREASED HEART RATE WITH IRRITATION, PAIN, AND MOVEMENT. METOPROLOL GIVEN FOR TACHYCARDIA. HEART RATE SLOWED DOWN FROM 170 TO 115. PT OUT OF BED TO RECLINER WITH PHYSICAL THERAPIST SUCCESSFULLY. PT BROUGHT BACK IN BED ONE HOUR LATER. FALL PRECAUTION IN PLACE. LIGHTING DIRECTOR STAYS IN ROOM AT ALL TIME. PT HAS POOR APPETITE. IV MEDICINE GIVEN ORDERED. LACTIC ACID 2.1 DURING ASSOCIATE PROFESSOR OF LIBRARY MEDIA. PT ALSO HAD AN AXILLARY TEMPERATURE OF 100.0 , TYLENOL WAS GIVEN FOR TEMP. NEW TEMP WAS 98.3. Q2TURN. TYSON IN PLACE. UA SENT TO LAB. MAG AND PHOSPHORUS REPLACED. LEFT HIP DRESSING IS IN PLACE. NO BLEEDING NOTICED. [facility] WORKED WITH PT IN HER ROOM. DIET CHANGED TO MECHANICAL GROUND. VIDEO SWALLOW TO BE DONE THE NEXT DAY. CALL LIGHT AT REACH. WILL CONTINUE TO MONITOR PT
--- NOTE | 2019-04-08 19:19 | CON ---
[address] [address] CONSULTATION Name: JIN MATAMOROS Room: [address] IN .R.#: [id number] Admission: 04/01/19 Attend Phys: Isabella Quinn Discharge: Date of : 63 Report #: [id number] THIS REPORT FOR: //name// CC: FAM unknown Obdulio Monzon VISITING CLINIC DATE OF SERVICE: 04/08/2019 REASON FOR CONSULTATION: I was asked to see this 54-year-old lady for acute respiratory failure. HISTORY OF PRESENT ILLNESS: The patient is nonverbal, is not able to give me any information. All of the information was obtained from chart and nursing staff. She presented with hip pain. She was found to have intertrochanteric fracture of left femur. She underwent a left hip hemiarthroplasty on 04/03/2019. She developed severe ileus. GI was consulted. She underwent EGD and colonoscopy on 04/05/2019. Esophagus showed retained food, stomach retained food. Colonoscopy, redundant sigmoid colon, diverticular disease, dilated colonic lumen. The colon was atonic. Colonic decompression tube was placed under fluoroscopic guidance. She was on 2 liters of oxygen, but her respiratory status did get worse, required 10 liters of oxygen. Last night, she was given Lasix 100 mg IV. She had 5 liters of urine. Now, she is requiring 3 liters of oxygen. She appears comfortable. She has had cough. PAST MEDICAL HISTORY: Cerebral palsy, status post left hip hemiarthroplasty, status post EGD and colonoscopy as mentioned as above, ileus, deafness, mute. ALLERGIES: XANAX, CODEINE. MEDICATIONS: Currently, she is on oxygen. IV fluid was stopped. Lasix was given. Albumin, Lipitor, Colace, Depakote, Lovenox 40 mg subcutaneous daily, Haldol p.r.n., hydromorphone p.r.n., DuoNeb p.r.n., Metamucil, Protonix, Zosyn. SOCIAL HISTORY: Unable to obtain. The patient is mute. FAMILY HISTORY: Unable to obtain. The patient is mute. REVIEW OF SYSTEMS: I have discussed the patient with RN. As mentioned as above, other systems otherwise negative. PHYSICAL EXAMINATION: GENERAL: She appears comfortable. VITAL SIGNS: Her O2 saturation on 3 liters of oxygen is 96%, respiratory rate 20, heart rate 120, blood pressure 134/76, temperature 36.8. HEENT: Normocephalic, atraumatic. Pupils equal, round, [place] [address] CONSULTATION Name: JIN MATAMOROS Room: [address] IN [facility].#: [id number] Admission: 04/01/19 Attend Phys: Isabella Quinn Discharge: Date of : 63 Report #: [id number] Nose is clear. NECK: There is no JVD, lymphadenopathy. CARDIOVASCULAR: Tachycardia. CHEST: Inspection is normal. LUNGS: There are bibasilar crackles, few end-expiratory wheezing. ABDOMEN: Soft. Bowel sounds diminished. EXTREMITIES: There is no edema. LYMPHATICS: There is no lymphadenopathy. NEUROLOGIC: Alert, agitated at times. SKIN: Chronic changes. LABORATORY DATA: I reviewed the following lab data: CT angiogram was done last night, did not show pulmonary embolism, but did show bilateral infiltrate, effusion and atelectasis. WBC 11.5, hemoglobin 8, platelets 214. ABG: pH 7.37, pCO2 of 39, pO2 of 86. Sodium 142, potassium 2.8, chloride 107, CO2 of 28, glucose 137, BUN 2, creatinine 0.5, magnesium 1.9, AST 32, ALT 20. C-reactive protein 165. MRSA pending. IMPRESSION: 1. Acute respiratory failure due to aspiration pneumonia/pneumonitis, volume overload, cannot rule out congestive heart failure. She did respond well to Lasix. 2. Abnormal chest x-ray and CT of the chest. 3. Status post left hip hemiarthroplasty. 4. Status post EGD and colonoscopy and colonic decompression tube placement. 5. Cerebral palsy with deafness, nonverbal. 6. Anemia. 7. Hypokalemia. PLAN AND RECOMMENDATIONS: 1. Titrate FiO2 to keep O2 saturation 92%. 2. She is tachycardic. I will change her bronchodilator to Atrovent only. 3. Continue antibiotics per ID. 4. Lovenox for DVT prophylaxis. 5. Protonix for stress ulcer prophylaxis. 6. Elevate head of bed. 7. Speech evaluation to make sure she does not have aspiration. 8. Monitor respiratory status very closely. 9. Anemia workup per primary. 10. The findings and recommendations were discussed with RN. [address] [address] CONSULTATION Name: JIN MATAMOROS [facility] IN M.R.#: [id number] Admission: 04/01/19 Attend Phys: Isabella Quinn Discharge: Date of : 63 Report #: [id number] Thank you very much for allowing me to participate in care of this very nice lady. <ELECTRONICALLY SIGNED> By: Xena Fernández MD 04/08/19 1919 [id number] Fernández MD /nt
[2019-04-09 00:27] VITALS: BP 115/65
[2019-04-09 04:00] VITALS: BP 122/77
[2019-04-09 07:30] VITALS: BP 131/77
[2019-04-09 08:10] LABS: ABSOLUTE LYMPHOCYTES 2.2 thou/uL (0.8-5.3); ABSOLUTE MONOCYTES 3.2 thou/uL (0.0-1.2); ABSOLUTE NEUTROPHILS 10.8 thou/uL (1.6-8.1); BASOPHILS 0.2 %; EOSINOPHILS 0.1 %; HEMATOCRIT 24.8 % (37.0-47.0); HEMOGLOBIN 8.6 gm/dL (12.0-15.0); LYMPHOCYTES 13.3 %; MCHC 34.5 g/dL (28.0-37.0); MCV 89.7 fL (80.0-100.0); MONOCYTES 19.7 %; MPV 7.5 fl. (7.2-11.1); NUCLEATED RBCS 2 /100WBC; PLATELET COUNT* 236 thou/uL (150-400); POLYS 66.7 %; RBC 2.76 mil/uL (4.20-5.00); RDW-CV 15.7 % (10.5-14.5); WBC 16.2 thou/uL (4.0-11.0)
[2019-04-09 08:25] LABS: ALBUMIN 4.4 g/dL (3.4-5.0); CALCIUM 8.7 mg/dL (8.5-10.1); CREATININE 0.5 mg/dL (0.6-1.3); TOTAL BILIRUBIN 0.9 mg/dL (<0.1-1.0); TOTAL PROTEIN 6.8 g/dL (6.4-8.2)
[2019-04-09 08:28] LABS: POTASSIUM 2.7 mmol/L (3.5-5.1)
--- NOTE | 2019-04-09 08:44 | NUR ---
PT'S GUARDIAN REQUESTED THAT PT BE GIVEN PRN PAIN MEDICATION THROUGHOUT SHIFT IF PT MOANS/APPEARS UNCOMFORTABLE. GUARDIAN REQUESTED PT BE DNR. ORDER OBTAINED. PT GIVEN PRN PAIN MEDICATION AND METOPROLOL THROUGH OUT SHIFT. O2 TITRATED TO LOW 90'S. CALL LIGHT IN [facility]. FREQUENT ROUNDING PER SAFETY.
[2019-04-09 09:00] VITALS: BP 136/76
--- NOTE | 2019-04-09 10:09 | NUR ---
REHAB DENIED PT-NOT APPROPRIATE FOR REHAB PER REFERRAL SENT TO [facility]. WILL WAIT TO HEAR BACK FROM THEM. NO DC ORDERS YET
--- NOTE | 2019-04-09 10:46 | NUR ---
RECEIVED CALL FROM [facility]. THEY DENIED PT. THEY STATE THEY DO NOT FEEL THEY CAN MEET PTS NEEDS
[2019-04-09 10:57] VITALS: BP 142/80
--- NOTE | 2019-04-09 14:43 | NUR ---
SENT REFERRALS TO [facility]. AWAITING REPLY
--- NOTE | 2019-04-09 14:57 | NUR ---
RECEIVED CALL FROM [facility]. PT MEDICALLY ACCEPTED AWAITING INSURANCE AUTH. SPOKE TO SEJAL LINARES WHO STATES SHE SUPPORTS THAT CHOICE OF [facility]
[2019-04-09 16:00] VITALS: BP 131/77
[2019-04-10] VITALS: BP 141/83
[2019-04-10 00:41] LABS: HEMATOCRIT 28.1 % (37.0-47.0); HEMOGLOBIN 9.4 gm/dL (12.0-15.0); MCH 30.3 pg (26.0-34.0); MCHC 33.5 g/dL (28.0-37.0); MCV 90.4 fL (80.0-100.0); MPV 7.4 fl. (7.2-11.1); NUCLEATED RBCS 2 /100WBC; PLATELET COUNT* 239 thou/uL (150-400); RBC 3.11 mil/uL (4.20-5.00); RDW-CV 15.8 % (10.5-14.5); WBC 16.8 thou/uL (4.0-11.0)
[2019-04-10 00:49] LABS: CALCIUM 8.5 mg/dL (8.5-10.1); CREATININE 0.6 mg/dL (0.6-1.3); MAGNESIUM 1.6 mg/dL (1.8-2.4)
[2019-04-10 00:58] LABS: POTASSIUM 3.7 mmol/L (3.5-5.1)
[2019-04-10 03:12] LABS: ABSOLUTE EOSINOPHILS 0.3 thou/uL (0.0-0.7); ABSOLUTE MONOCYTES 3.2 thou/uL (0.0-1.2); ABSOLUTE NEUTROPHILS 11.3 thou/uL (1.6-8.1); ANISOCYTOSIS Occasional; CLUMPED PLTS FEW; PLATELET ESTIMATE ADEQUATE
[2019-04-10 03:13] LABS: TOXIC GRANULATION 1+
[2019-04-10 04:00] VITALS: BP 143/82
[2019-04-10 08:15] VITALS: BP 139/77
--- NOTE | 2019-04-10 09:37 | NUR ---
Nutrition: reassessment note. Pt on Ground diet. Awaiting insurance auth for MadisynNitza. Alb 4.4. Bed wt 110#. Appears at low nutrition risk. GOALS: >75% intake of meals.
--- NOTE | 2019-04-10 11:15 | NUR ---
EMAILED [id number] AND SPECIAL ADMISSIONS CATEGORY FORM WITH CLINICAL TO RUPERTO RE: SNF ADMIT TO [facility]. ANTICIPATE AT LEAST 48HR BEFORE WE RECEIVE ANSWER
[2019-04-10 12:00] VITALS: BP 147/81
[2019-04-10 17:01] VITALS: BP 141/84
--- NOTE | 2019-04-10 18:58 | NUR ---
PT ALERT AND AWAKE MOST OF SHIFT, PAIN NOT WELL MANAGED THIS SHIFT. PT STILL HAD RECTAL TUBE IN PLACE AND IT WAS REMOVED BY THIS RN AFTER ORDERS BY ARLINE KOCH WERE RECIEVED AND SUPPOSITORY WAS GIVEN AT THAT TIME. PT NOT TOLERATING SITTING AT SIDE OF BED HER HR GOES INTO THE 160-180'S THIS SHIFT, TEAM AWARE. POST OP DRESSING CDI AT THIS TIME WITH OLD DRAINAGE PRESENT. PT HAS REDUCED APPETITE AND TAKES PILLS CRUSHED IN CHOCOLATE PUDDING. CAREGIVER AT BEDSIDE MOST OF THE SHIFT AND INTERACTED WITH THE PT VERY WELL. PT PROVIDED WITH SQ INJECTION TO HELP WITH CONSTIPATION THIS SHIFT. PT HAS ABDUCTOR PILLOW IN PLACE PER THE PHYSICIAN ORDER UNLESS AMBULATING. KUB WAS OBTAINED THIS SHIFT. HOURLY ROUNDING MAINTAINED THIS SHIFT AND PRN O2 HAS BEEN USED PER NC TO MAINTAIN O2 SATS GREATER THAN 92%. PT SHOWS SIGNS OF ANXIETY HER HR WOULD GO UP WITH JUST HER CAREGIVER SIGNING THAT SHE WAS GOING TO BE MOVED PRIOR TO ANY MOVEMENT TAKING PLACE. WILL CONTINUE TO MONITOR AND ASSESS
[2019-04-11 00:59] VITALS: BP 152/93
[2019-04-11 04:00] VITALS: BP 134/76
[2019-04-11 07:30] VITALS: BP 127/74
[2019-04-11 10:37] LABS: HEMATOCRIT 29.8 % (37.0-47.0); MCH 30.7 pg (26.0-34.0); MCHC 33.7 g/dL (28.0-37.0); MCV 91.1 fL (80.0-100.0); RBC 3.27 mil/uL (4.20-5.00); RDW-CV 15.8 % (10.5-14.5); WBC 22.5 thou/uL (4.0-11.0)
[2019-04-11 10:50] LABS: CALCIUM 8.7 mg/dL (8.5-10.1); CREATININE 0.6 mg/dL (0.6-1.3); MAGNESIUM 1.7 mg/dL (1.8-2.4); PHOSPHORUS* 1.2 mg/dL (2.5-4.9); POTASSIUM 4.2 mmol/L (3.5-5.1)
[2019-04-11 12:00] VITALS: BP 159/95
--- NOTE | 2019-04-11 12:51 | NUR ---
was able to speak with guardian today regarding [facility], CM confirmed that guardian is in agreement with POC. Faxed referral to [facility] per guardian's request. Abby from [facility] to be here to assess around 130. Per anticipate dc in 1-2 days, pending ID.
[2019-04-11 16:00] VITALS: BP 161/85
[2019-04-12] VITALS: BP 142/91
[2019-04-12 05:18] LABS: ABSOLUTE BASOPHILS 0.1 thou/uL (0.0-0.2); ABSOLUTE EOSINOPHILS 0.2 thou/uL (0.0-0.7); ABSOLUTE LYMPHOCYTES 3.7 thou/uL (0.8-5.3); ABSOLUTE MONOCYTES 4.4 thou/uL (0.0-1.2); ABSOLUTE NEUTROPHILS 15.8 thou/uL (1.6-8.1); BASOPHILS 0.4 %; EOSINOPHILS 0.7 %; HEMATOCRIT 30.4 % (37.0-47.0); HEMOGLOBIN 10.3 gm/dL (12.0-15.0); LYMPHOCYTES 15.2 %; MCHC 33.7 g/dL (28.0-37.0); MONOCYTES 18.4 %; MPV 8.4 fl. (7.2-11.1); NUCLEATED RBCS 5 /100WBC; PLATELET COUNT* 277 thou/uL (150-400); POLYS 65.3 %; RBC 3.31 mil/uL (4.20-5.00); RDW-CV 15.5 % (10.5-14.5); WBC 24.1 thou/uL (4.0-11.0)
[2019-04-12 05:46] LABS: ALBUMIN 3.3 g/dL (3.4-5.0); CALCIUM 8.6 mg/dL (8.5-10.1); CREATININE 0.6 mg/dL (0.6-1.3); POTASSIUM 3.9 mmol/L (3.5-5.1); TOTAL BILIRUBIN 0.8 mg/dL (<0.1-1.0); TOTAL PROTEIN 6.5 g/dL (6.4-8.2)
[2019-04-12 06:15] VITALS: BP 119/78
--- NOTE | 2019-04-12 07:26 | NUR ---
VSS. SEE MAR SEE CHARTING. FALL PRECAUTIONS IN PLACE. HOURLY ROUNDING FOR SAFETY.
[2019-04-12 08:00] VITALS: BP 126/49
--- NOTE | 2019-04-12 10:18 | NUR ---
Pt febrile over night, no dc today, possible dc tomorrow to [facility]. Updated Chantelle at [facility] and updated guardian. If Pt is ready to dc over the weekend, contact Chantelle at [phone], f:[phone]. Guardian available after 3pm, wants to be here for dc.
[2019-04-12 11:40] VITALS: BP 129/57
[2019-04-12 16:35] VITALS: BP 134/76
--- NOTE | 2019-04-12 19:14 | NUR ---
ASSUMED CARE OF PATIENT THIS AM AT 0730. PATIENT IS ALERT NONVERBAL, AND CRYING OUT IN PAIN THIS AM. IV INFLTRATED AT THE START OF THE SHIFT. IV DISCONTINUED AND NEW IV ATTEMPTED X 2 WITHOUT SUCCESS. INFUSION NURSE NOTIFIED AND IN TO RESTART IV ACCESS. PATIENT MEDICATED FOR PAIN IV X 2 AND PO X 1. ASSISTED UP TO THE BSC WITH PT AND THEN PLACED UP IN THE CHAIR. NO BM NOTED TODAY. TYSON REMAINS TO DD. IV ANTIBIOTIC CONTINUED. PATIENT HAD A TEMP THIS AM OF 101.4. HER TEMP IS > THAN 100 THIS EVENING. SHE IS TAKING HER MEALS WELL. WILL CONTINUE TO MONITOR TEMPERATURE ELEVATION AND PAIN. NO FALLS OR INJURY.
[2019-04-13] VITALS: BP 135/86
[2019-04-13 04:00] VITALS: BP 128/75
[2019-04-13 05:02] LABS: HEMATOCRIT 30.3 % (37.0-47.0); HEMOGLOBIN 10.1 gm/dL (12.0-15.0); MCH 30.9 pg (26.0-34.0); MCHC 33.2 g/dL (28.0-37.0); MPV 7.9 fl. (7.2-11.1); NUCLEATED RBCS 1 /100WBC; PLATELET COUNT* 297 thou/uL (150-400); RBC 3.26 mil/uL (4.20-5.00); WBC 24.6 thou/uL (4.0-11.0)
[2019-04-13 05:19] LABS: MAGNESIUM 2.1 mg/dL (1.8-2.4); PHOSPHORUS* 2.1 mg/dL (2.5-4.9)
[2019-04-13 05:29] LABS: ALBUMIN 3.4 g/dL (3.4-5.0); CALCIUM 8.3 mg/dL (8.5-10.1); CREATININE 0.5 mg/dL (0.6-1.3); POTASSIUM 4.3 mmol/L (3.5-5.1); TOTAL PROTEIN 6.7 g/dL (6.4-8.2)
[2019-04-13 07:04] LABS: ABSOLUTE LYMPHOCYTES 4.2 thou/uL (0.8-5.3); ABSOLUTE NEUTROPHILS 20.4 thou/uL (1.6-8.1); PLATELET ESTIMATE ADEQUATE
[2019-04-13 07:30] VITALS: BP 144/83
--- NOTE | 2019-04-13 07:59 | NUR ---
ATEMPTED TO PLACE ABDUCTER PILLOW WITH PT SEVERAL TIMES THROUGH THE NIGHT, PT WAS NOT ABLE TO STRAIGHTEN LEFT LEG. PILLOW CAUSED TO MUCH PAIN FOR PT, PILLOW HAD TO BE REMOVED. PAIN MEDICATION GIVEN BEFORE AND AFTER EACH ATTEMPT.
[2019-04-13 12:00] VITALS: BP 131/78
[2019-04-13] MEDS ORDERED: LOVENOX40 MG/0.4 PO (13:37)
[2019-04-13] MEDS ORDERED: LINZESS72 MCG PO (13:40)
[2019-04-13] MEDS ORDERED: IPRAT-ALBUT 0.5-3 ML INH (13:42)
[2019-04-13] MEDS ORDERED: TOPROL XL25 MG PO (13:49)
[2019-04-13] MEDS ORDERED: OCTREOTIDE100 MCG/1 INJECTION (13:50)
[2019-04-13] MEDS ORDERED: OXYBUTYNIN 5 MG5 M2 PO (13:54)
[2019-04-13] MEDS ORDERED: PROTONIX40 M2 PO (13:57)
[2019-04-13] MEDS ORDERED: MIRALAX119 GM PO (13:58)
[2019-04-13] MEDS ORDERED: FOLIC ACID1 MG IV (14:00)
[2019-04-13] MEDS ORDERED: MERREM500 MG IVPB (14:03)
[2019-04-13] MEDS ORDERED: VANCOMYCIN HCL250 MG IV (14:04)
[2019-04-13] MEDS ORDERED: TYLENOL325 MG PO (14:06)
[2019-04-13] MEDS ORDERED: FEVERALL120 MG RECTAL (14:07)
[2019-04-13] MEDS ORDERED: BISACODYL10 MG RECTAL (14:08)
[2019-04-13] MEDS ORDERED: HYDROMORPHO IV PUSH (14:12)
[2019-04-13] MEDS ORDERED: HYDROXYZINE HCL25 M2 PO (14:17)
[2019-04-13] MEDS ORDERED: METAMUCIL0.4 GM PO (14:24)
[2019-04-13 14:30] VITALS: BP 144/83
[2019-04-13] MEDS ORDERED: TYLENOL COLD M240 ML PO (14:33)
[2019-04-13 14:38] VITALS: BP 144/83
--- NOTE | 2019-04-13 15:21 | NUR ---
CALLED REPORT TO SIVAKUMAR AT [facility]. UPDATED PER PT CONDITION AND ORIENTATION. SHE WAS TOLD THAT MEDICATION WOULD COME SINCE PT WAS PROVIDED SAMPLES BY GI. VSS THIS SHIFT AND AFEBRILE. PT PAIN MUCH BETTER MANAGED AND PT HAS BEEN ABLE TO GET A FEW SHORT NAPS. PT TO DC TO FACILITY WITH TYSON AND IV IN PLACE. SIVAKUMAR WAS INFORMED THAT THE PT WOULD BE PROVIDED WITH A DOSE OF IV PAIN MEDICATION RIGHT BEFORE SHE LEAVES WITH TRANSPORT. WILL CONTINUE TO MONITOR AND ASSESS UNTIL TRANSPORT ARRIVES.
--- NOTE | 2019-04-13 17:41 | NUR ---
1709-PT LEFT WITH C TRANSPORT. IV INTACT AT TIME OF DC. TYSON IN PLACE. PAIN MANAGED AT TIME OF DC. PT SENT WITH RICAS SAMPLES PROVIDED BY GI. GUARDIAN AT BEDSIDE AT TIME OF DISCHARGE.
--- NOTE | 2019-04-16 21:38 | OP ---
[facility] [place] [address] OPERATIVE REPORT Name: JIN MATAMOROS Room: [address]#: [id number] Admission: 04/01/19 Attend Phys: Isabella Quinn Discharge: 04/13/19 Date of : 63 Report #: [id number] THIS REPORT FOR: //name// CC: FAM unknown Obdulio Monzon VISITING CLINIC DATE OF SERVICE: 04/03/2019 PREOPERATIVE DIAGNOSES: 1. Left femoral neck fracture and left greater trochanteric fracture. 2. Cerebral palsy. POSTOPERATIVE DIAGNOSES: 1. Left femoral neck fracture and left greater trochanteric fracture. 2. Cerebral palsy with contractures. PROCEDURE: Left christian-hip arthroplasty with open reduction and internal fixation, left greater trochanter. SURGEON: Topher Olmedo DO SOLE STITCHER HAND: Marlo Dowell DO ANESTHESIA: General. ANTIBIOTICS: Ancef. FLUIDS: 850 mL lactated Ringer's. ESTIMATED BLOOD LOSS: 200 mL. COMPLICATIONS: None. SPECIMENS: None. DRAINS: None. CONDITION: The patient is stable to PACU. IMPLANTS: Biomet Echo fracture stem size 7 standard offset with 41 mm bipolar shell and a -6 neck adapter and Zachary Biomet trochanteric hook plate with three cables. INDICATIONS FOR PROCEDURE: The patient is admitted to [facility] with a left hip fracture. A consultation was requested. Upon our initial [facility] [place] [address] OPERATIVE REPORT Name: JIN MATAMOROS Room: [address] IN M.R.#: [id number] Admission: 04/01/19 Attend Phys: Isabella Quinn Discharge: 04/13/19 Date of : 63 Report #: [id number] consultation, the patient's caregiver has originally tried for transfer. Transfer ultimately did delay care: I spoke at length regarding this with the patient's caregiver. After transfer was unable to be obtained, we got the next operative time available in the OR and discussed at length with the provider the reasoning behind this and she understood that this was due to attempt to transfer. I went over with her what the diagnosis was, exam findings, imaging, treatment options, plan of surgery with reasoning, and risks and complications. It should be noted that we would offer nonoperative management, but she felt that nonoperative management had already been attempted, as it had been over a week and a half and she was not able to transfer and was not eating due to pain and other issues and that she did not like the idea of a Girdlestone type procedure. We therefore will attempt christian-hip arthroplasty which she is aware that this has increased complications, especially with her comorbidities. Please see consultation note for full details, and risks and complications were acknowledged and accepted. DESCRIPTION OF PROCEDURE: I marked the left lower extremity in the presence of the operative team members and everyone agreed that this was correct including the caregiver and power of energy attorney who agreed it was the left. She was then taken back to the operative suite where a briefing performed indicating correct patient, procedure, site, antibiotics and that implants were present and sterile. All team members agreed. General anesthetic administered. She was then transferred over to the right lateral decubitus position with the left lower extremity being sterilely prepped and draped in standard fashion. Timeout was performed indicating correct patient, procedure, site, antibiotics and that implants were present and sterile. All team members agreed. Anterolateral approach was utilized with scalpel through skin, full thickness flaps, IT band and fascia. This was incised with scalpel and scissors. The Charnley retractor was placed deep. Significant adhesions, most likely due to her cerebral palsy and contractures, were identified and had to be released appropriately. Gluteal medius and minimus were very atrophied as expected with her condition. This was released off the greater trochanter, leaving a cuff of tendon for repair and also attachment of the greater trochanter was left. We then incised the capsule with a T capsulotomy. We used oscillating saw to clean the neck cut above the lesser trochanter a fingerbreadth. We then removed the head and neck sized on the back table, very dysplastic acetabulum and small head as expected with her condition, 41 was fitting, but not able to go up in size anymore. We began prepping the femur, size 7 was the smallest stem size with reaming and broaching, and this was what we went with it and fit well. There was no fracture of the remaining femur, was thrown onto the back table, irrigated with normal saline, and implanted this into its position. At that point in time, we then trialed a 6 and this was very tight. Once this was reduced, she actually had equal leg lengths, potentially even being slightly long, but not able to really go any smaller. At that point in time, we then fashioned the claw plate thrown onto the back table and reduced our greater trochanter and attached the claw plate and then engaged the cables appropriately. Staying on bone as we [address] [address] OPERATIVE REPORT Name: JIN MATAMOROS Room: [address] IN [facility]#: [id number] Admission: 04/01/19 Attend Phys: Isabella Quinn Discharge: 04/13/19 Date of : 63 Report #: [id number] passed these held our reduction quite well. We then threw the final 51 and a -6 adapter on the backtable and engaged that to the Wan taper and then with all final components in place including reduction of the trochanteric fracture with claw plate. We reduced the hip, took the range of motion, and it was full. We could not find any episodes of instability throughout that motion. We irrigated with normal saline. We repaired our capsule with #1 Vicryl [id number] interrupted and then began closing our glutes to our bone with through bone sutures #5 Tycron, oversewn with #1 Vicryl. IT band and fascial layer were closed with #1 Vicryl [id number] interrupted and oversewn with #1 Stratafix. Subcutaneous and skin were closed with 2-0 Monocryl, buried deep, and zeb for skin. Debriefing performed where we confirmed procedure, blood loss, and that all counts were correct and final. All team members agreed. She was transferred off the table to her bed in the supine position. Leg lengths were judged as equal, though she does have contractures that make it difficult to fully engage or trial for this. Abductor pillow was placed. She was extubated and taken to PACU in stable. POSTOPERATIVE COURSE AND EVALUATION: I spoke with the power of energy attorney and caregiver. I addressed any questions she had, stated satisfaction. She is very thankful for my time and efforts. The patient was resting in PACU with stable vital signs, pain controlled, and neurovascularly her exam appeared to be her normal exam with no change compared to preoperative. PACU film showed stable implants. No fracture or dislocation or obvious pathologic process. We will allow for weightbearing, but we will limit abduction as we will have trochanteric precautions as well as anterolateral precautions. PT, OT, and case management to help with discharge planning. I encouraged nursing, medical staff, caregiver, and power of energy attorney to call anytime with questions or concerns. DVT prophylaxis will be pharmacological and mechanical. <ELECTRONICALLY SIGNED> By: Topher Olmedo DO 04/16/19 2138 1648 Chastity Olmedo DO /nt
--- NOTE | 2019-04-23 18:22 | CON ---
[address] [address] CONSULTATION Name: JIN MATAMOROS Room: [address] IN M.R.#: [id number] Admission: 04/01/19 Attend Phys: Isabella Quinn Discharge: 04/13/19 Date of : 63 Report #: [id number] THIS REPORT FOR: //name// cc: [facility] - Clinic physician unknown [facility] - Clinic physician unknown ~ THIS REPORT FOR: //name// CC: [facility] unknown Obdulio Monzon MD VISITING CLINIC DATE OF SERVICE: 04/05/2019 GI CONSULTATION REFERRING PHYSICIAN: Obdulio Monzon MD REASON FOR CONSULTATION: Abdominal distention. IMPRESSION: 1. 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 2. Chronic constipation as evidenced by the need for chronic laxatives and an abnormal CAT scan, prior to surgery demonstrated dilated colon with lots of stool within the same. 3. Status post left hip arthroplasty for fracture. 4. Postoperative anemia requiring blood transfusion. 5. Fever, likely related to postoperative pneumonia. 6. Cerebral palsy with the patient being deaf and mute as well. RECOMMENDATIONS: 1. We will proceed with upper endoscopy and colonoscopy tonight under general endotracheal anesthesia to evaluate for source of anemia plus attempt to decompress the colon and place the colonic decompression tube. 2. I am not sure where the diagnosis of decompensated cirrhosis comes from as I do not see anything suspicious for the same with regards to her labs, CT scans, etc. I have discussed the plans with the patient's ICU nurse, ____, and I have also discussed the patient's case with her guardian, Pamela Kim, and she is agreeable for me to proceed. HISTORY OF PRESENT ILLNESS: The patient is a 54-year-old -[place] female, who is a resident of [facility], who was brought to the hospital because of problems with a fractured left hip. She has been admitted for having surgery for the same and has now had some issues with abdominal distention, [place] [address] CONSULTATION Name: JIN MATAMOROS Room: [address]#: [id number] Admission: 04/01/19 Attend Phys: Isabella Quinn Discharge: 04/13/19 Date of : 63 Report #: [id number] which has worsened causing her some issues with breathing. She has tendency towards chronic constipation and is on a number of different laxatives to help with the same at the hospital. She is currently having some issues with her breathing and for this reason, we are asked to see her in consultation. The patient is nonverbal and can communicate through signing, but no one is available for the same. She appears to be ill-appearing. ALLERGIES TO MEDICATIONS, PAST MEDICAL, SURGICAL, AND SOCIAL HISTORY: Part of the current record, not be repeated here. PHYSICAL EXAMINATION: GENERAL: Revealed ill-appearing 54-year-old -[place] female, who is awake, but lethargic. CARDIOPULMONARY: Revealed tachycardic rate and rhythm. LUNGS: Clear. ABDOMEN: It was taut. No rebound or guarding noted. DISCUSSION: At the present time, the patient appears to be an acceptable candidate to undergo endoscopic evaluation. We will proceed with EGD and colonoscopy with decompression today and make further recommendations thereafter. <ELECTRONICALLY SIGNED> By: Flaco Chadwick DO 04/23/19 1822 1743 [id number] Chadwick DO /nt
== END 2019-04-13 17:10 | DRG 469 ==
LOC: M.ERS 11:45 → M.TBA-ER 14:10 → M.ORTHSURG 14:10 → M.ICU 04-03 19:18 → M.2W 04-06 21:10
PROVIDERS: Anesthesiology; Emergency Medicine Emergency Medical Services; Internal Medicine; Internal Medicine Gastroenterology; Orthopaedic Surgery; Registered Nurse; Specialist; Surgery; ADMIT Internal Medicine
PROC: 0QS704Z Reposition Left Upper Femur with Internal Fixation Device, Open Approach (ICD-10-PCS; principal; 2019-04-03)
PROC: 0SRS01Z Replacement of Left Hip Joint, Femoral Surface with Metal Synthetic Substitute, Open Approach (ICD-10-PCS; principal; 2019-04-03)
PROC: 30233K0 Transfusion of Autologous Frozen Plasma into Peripheral Vein, Percutaneous Approach (ICD-10-PCS; 2019-04-04)
PROC: 0DC28ZZ Extirpation of Matter from Middle Esophagus, Via Natural or Artificial Opening Endoscopic (ICD-10-PCS; 2019-04-05)
PROC: 0D7K8ZZ Dilation of Ascending Colon, Via Natural or Artificial Opening Endoscopic (ICD-10-PCS; 2019-04-05)
PROC: 0D7N8ZZ Dilation of Sigmoid Colon, Via Natural or Artificial Opening Endoscopic (ICD-10-PCS; 2019-04-05)
PROC: 0D7H8ZZ Dilation of Cecum, Via Natural or Artificial Opening Endoscopic (ICD-10-PCS; 2019-04-05)
PROC: 0DC38ZZ Extirpation of Matter from Lower Esophagus, Via Natural or Artificial Opening Endoscopic (ICD-10-PCS; 2019-04-05)
PROC: 30233N0 Transfusion of Autologous Red Blood Cells into Peripheral Vein, Percutaneous Approach (ICD-10-PCS; 2019-04-05)
PROC: 0D7M8ZZ Dilation of Descending Colon, Via Natural or Artificial Opening Endoscopic (ICD-10-PCS; 2019-04-05)
PROC: 0D7L8ZZ Dilation of Transverse Colon, Via Natural or Artificial Opening Endoscopic (ICD-10-PCS; 2019-04-05)
PROC: 0D9L8ZZ Drainage of Transverse Colon, Via Natural or Artificial Opening Endoscopic (ICD-10-PCS; 2019-04-05)
DX: S72.142A Displaced intertrochanteric fracture of left femur, initial encounter for closed fracture (principal); J96.01 Acute respiratory failure with hypoxia; J69.0 Pneumonitis due to inhalation of food and vomit; K56.7 Ileus, unspecified; D62 Acute posthemorrhagic anemia; D68.9 Coagulation defect, unspecified; K59.39 Other megacolon; E87.0 Hyperosmolality and hypernatremia; N39.0 Urinary tract infection, site not specified; E87.2 Acidosis; J90 Pleural effusion, not elsewhere classified; K56.609 Unspecified intestinal obstruction, unspecified as to partial versus complete obstruction; E83.42 Hypomagnesemia; Z66 Do not resuscitate; E83.39 Other disorders of phosphorus metabolism; R50.82 Postprocedural fever; D72.829 Elevated white blood cell count, unspecified; R00.0 Tachycardia, unspecified; E87.70 Fluid overload, unspecified; T50.2X5A Adverse effect of carbonic-anhydrase inhibitors, benzothiadiazides and other diuretics, initial encounter; Y92.230 Patient room in hospital as the place of occurrence of the external cause; S72.002A Fracture of unspecified part of neck of left femur, initial encounter for closed fracture; E87.6 Hypokalemia; G80.9 Cerebral palsy, unspecified; I10 Essential (primary) hypertension; E78.5 Hyperlipidemia, unspecified; G40.909 Epilepsy, unspecified, not intractable, without status epilepticus; H91.3 Deaf nonspeaking, not elsewhere classified; R14.0 Abdominal distension (gaseous); F41.9 Anxiety disorder, unspecified; E86.9 Volume depletion, unspecified; R13.10 Dysphagia, unspecified; Y95 Nosocomial condition; X58.XXXA Exposure to other specified factors, initial encounter; K59.09 Other constipation; K57.30 Diverticulosis of large intestine without perforation or abscess without bleeding; T18.2XXA Foreign body in stomach, initial encounter; T18.128A Food in esophagus causing other injury, initial encounter; W18.39XA Other fall on same level, initial encounter; Z79.899 Other long term (current) drug therapy; Z88.6 Allergy status to analgesic agent; Y93.89 Activity, other specified; Y92.89 Other specified places as the place of occurrence of the external cause; Y99.8 Other external cause status; Z88.8 Allergy status to other drugs, medicaments and biological substances; Z79.51 Long term (current) use of inhaled steroids

== ENCOUNTER 2019-06-10 10:32 | Inpatient (IN) | payer MEDICARE, MEDICAID ==
[~2019-06-10] VITALS: Ht 160 cm; Wt 37.2 kg
[~2019-06-10 10:32] MED LIST changes: +BISACODYL10 MG RECTAL; +EPSOM SALT454 GM TOP; +FEVERALL120 M1 RECTAL; +FEVERALL120 MG PO; +FOLIC ACID1 MG IV; +HYDROMORPHO IV PUSH; +HYDROXYZINE HCL25 M2 PO; +IPRAT-ALBUT 0.5-3 ML INH; +LINZESS72 MCG PO; +LOVENOX40 MG/0.4 PO; +MERREM500 MG IVPB; +METAMUCIL0.4 GM PO; +MIRALAX119 GM PO; +OCTREOTIDE100 MCG/1 INJECTION; +OXYBUTYNIN 5 MG5 M2 PO; +PROTONIX40 M2 PO; +SINGULAIR 10 MG10 MG PO; +TOPROL XL25 MG PO; +TRIPLE ANTIBIO1 EAC1 TOP; +TUSSIN CF COUG118 ML PO; +VANCOMYCIN HCL250 MG IV
[2019-06-10] MEDS ORDERED: CALCIUM MAGNES1 EAC2 PO (10:51)
[2019-06-10] MEDS ORDERED: NASONEX17 GM NASAL (10:51)
[2019-06-10] MEDS ORDERED: SINGULAIR 10 MG10 M1 PO (10:52)
[2019-06-10] MEDS ORDERED: CHILDREN'S100 MG/5 M PO (10:52)
[2019-06-10] MEDS ORDERED: LOPERAMIDE2 MG PO (10:53)
[2019-06-10] MEDS ORDERED: CLONIDINE HCL0.2 M2 PO (10:54)
[2019-06-10] MEDS ORDERED: AZO CRANBERRY1 EAC1 PO (10:55)
[2019-06-10] MEDS ORDERED: TOPAMAX100 MG PO (10:56)
[2019-06-10] MEDS ORDERED: TRIAMTERENE-HC1 EAC2 PO (10:56)
[2019-06-10 11:07] LABS: ABSOLUTE EOSINOPHILS 0.1 thou/uL (0.0-0.7); ABSOLUTE LYMPHOCYTES 1.5 thou/uL (0.8-5.3); ABSOLUTE MONOCYTES 0.3 thou/uL (0.0-1.2); ABSOLUTE NEUTROPHILS 3.3 thou/uL (1.6-8.1); BASOPHILS 0.8 %; EOSINOPHILS 1.2 %; HEMATOCRIT 41.3 % (37.0-47.0); HEMOGLOBIN 13.6 gm/dL (12.0-15.0); LYMPHOCYTES 28.6 %; MCH 30.1 pg (26.0-34.0); MCHC 32.9 g/dL (28.0-37.0); MCV 91.4 fL (80.0-100.0); MPV 9.3 fl. (7.2-11.1); NUCLEATED RBCS 0 /100WBC; PLATELET COUNT* 241 thou/uL (150-400); POLYS 63.4 %; RBC 4.52 mil/uL (4.20-5.00); RDW-CV 15.6 % (10.5-14.5); WBC 5.1 thou/uL (4.0-11.0)
[2019-06-10 11:16] LABS: CALCIUM 9.4 mg/dL (8.5-10.1); CREATININE 0.7 mg/dL (0.6-1.3); POTASSIUM 3.2 mmol/L (3.5-5.1)
[2019-06-10 11:20] LABS: ALBUMIN 2.6 g/dL (3.4-5.0); TOTAL BILIRUBIN 0.2 mg/dL (<0.1-1.0); TOTAL PROTEIN 8.1 g/dL (6.4-8.2)
[2019-06-10 13:33] VITALS: BP 129/66
[2019-06-10 14:19] VITALS: BP 113/82
--- NOTE | 2019-06-10 15:19 | EKG ---
[place] [address] ELECTROCARDIOGRAM REPORT Name: JIN MATAMOROS Room: [address] ADM IN ..#: [id number] Admission: 06/10/19 Attend Phys: Corin Nunez, Discharge: Date of : 63 Date of Service: 06/10/19 1040 Report #: [id number] THIS REPORT FOR: //name// [facility] ED Test Date: 2019-06-10 Test Time: 10:40:18 Pat Name: JIN MATAMOROS Department: Room: [facility] Gender: F Biodiesel Operations Manager: : 1965 Requested By: Miguel Perez Order Number: [id number] MD: Bayron Osman Measurements Intervals [place] Rate: 139 P: 74 AK: 149 QRS: -34 QRSD: 61 T: QT: 323 QTc: 491 Interpretive Statements Sinus tachycardia artifact noted Left axis deviation Abnormal R-wave progression, early transition Borderline T abnormalities, anterior leads Borderline prolonged QT interval Compared to ECG 04/04/2019 12:22:57 T-wave abnormality now present Electronically Signed On 06-10-2019 15:18:11 CDT by Bayron Osman [email or web address] <ELECTRONICALLY SIGNED> By: Bayron Osman MD, FAC 06/10/19 1518 1040 1040 Bayron Osman MD, [facility] /EPI
[2019-06-10 16:22] VITALS: BP 112/72
--- NOTE | 2019-06-10 17:18 | NUR ---
PT REMAINED ALERT AND NONVERBAL. PT DENIED ANY NEEDS VIA SIGN LANGUAGE. FALL RISK PRECAUTIONS IN PLACE. HOURLY ROUNDING COMPLETED. Q2 TURNS COMPLETED. FEEDER ASSISTED WITH MEALS. WILL CONTINUE TO MONITOR.
[2019-06-10 20:55] VITALS: BP 122/71
[2019-06-11] VITALS: BP 122/76
[2019-06-11 03:44] LABS: HEMATOCRIT 35.4 % (37.0-47.0); HEMOGLOBIN 11.8 gm/dL (12.0-15.0); MCH 30.4 pg (26.0-34.0); MCHC 33.2 g/dL (28.0-37.0); MCV 91.5 fL (80.0-100.0); MPV 8.9 fl. (7.2-11.1); RBC 3.86 mil/uL (4.20-5.00); RDW-CV 15.4 % (10.5-14.5); WBC 3.9 thou/uL (4.0-11.0)
[2019-06-11 04:13] VITALS: BP 107/67
[2019-06-11 04:14] LABS: CALCIUM 8.6 mg/dL (8.5-10.1); CREATININE 0.4 mg/dL (0.6-1.3); MAGNESIUM 1.6 mg/dL (1.8-2.4); POTASSIUM 3.1 mmol/L (3.5-5.1); TOTAL BILIRUBIN 0.2 mg/dL (<0.1-1.0); TOTAL PROTEIN 6.3 g/dL (6.4-8.2)
--- NOTE | 2019-06-11 04:33 | NUR ---
ASSUMED CARE OF PT 06/10/19 AT APPROX 1930. PT SINUS TACH, SR WITH PVC'S ON MONITOR, VSS. PT TURNED Q2H, PAIN MEDS REQUESTED AND GIVEN ORDERED. ASSESSMENTS AND HOURLY ROUNDINGS COMPLETED. WILL CONTINUE TO MONITOR.
[2019-06-11 07:58] VITALS: BP 108/61
--- NOTE | 2019-06-11 09:04 | NUR ---
ASSUMED CARE OF PT THIS AM AROUND 714- MILL LABOR SUPERVISOR IN PLACE ORDERED, TRACING SR- UPON ASSESSMENT PT NOTED TO BE RESTING IN BED- PT NOTED TO BE MUTE/DEFF/NON-VERBAL- SIGN LANGUAGE USED FOR COMMUNICATION- INCONT OF B/B- Q 2HOUR TURNS IN PLACE INDICATED- DIMINISHED LUNG SOUNDS, RESP EVEN AND UN-LABORED- VSS, O2 SAT 99% ON RA- ABD SOFT/ROUND/NON-TENDER, BS X4 QUADS- LAST BM REPORTED ON PRIOR SHIFT- IV NOTED TO RIGHT AC INTACT, IVF INFUSSING PRESCRIBED- BLE CONTRACTURES NOTED- ASSISTANCE REQUIRED WITH MEALS, FAIR PO INTAKE NOTED- PT REFUSED MEDICATIONS THIS AM, DESPITE MULTIPLE ATTEMPTS-K+ AND MG REPLACED THIS AM PER PROTOCOL WITH LAB RECHECK TO FOLLOW- CALL LIGHT AND PERSONAL BELONGINGS WITH IN REACH- HOURLY ROUNDS IN PLACE R/T SAFETY/NEEDS- ALL NEEDS MET AT THIS TIME-WCTM
[2019-06-11 11:11] LABS: URINE BILIRUBIN NEGATIVE (Negative); URINE BLOOD NEGATIVE (Negative); URINE CLARITY CLEAR; URINE COLOR YELLOW; URINE GLUCOSE-RANDOM NEGATIVE (Negative); URINE KETONES TRACE (Negative); URINE LEUKOCYTES-REFLEX NEGATIVE (Negative); URINE NITRITE-REFLEX NEGATIVE (Negative); URINE PROTEIN NEGATIVE (Negative); URINE UROBILINOGEN 0.2 E.U./dl (0.2-1.0)
--- NOTE | 2019-06-11 11:11 | CON ---
[address] [address] CONSULTATION Name: JIN MATAMOROS Room: [address] [place] .R.#: [id number] Admission: 06/10/19 Attend Phys: Corin Nunez MD Discharge: Date of : 63 Report #: [id number] THIS REPORT FOR: //name// cc: Eugenia Guerrier MD, Mana MD ~ THIS REPORT FOR: //name// CC: Corin Guerrier DATE OF SERVICE: 06/10/2019 HISTORY OF PRESENT ILLNESS: The patient is a 54-year-old single black female who I was asked to see in the Emergency Room today after she was noted to be tachycardic. The history is obtained from the patient's caregiver. The patient was born with cerebral palsy. There is contracture of her legs and is primarily in wheelchair. She currently lives in a usp. She is completely deaf. She does feed herself. She was actually here at [facility] about a month ago and underwent hip surgery. Physical therapist had concerns about her hip. She was brought to the Emergency Room to have the hip x-ray today. She denied any recent fever, cough, shortness of breath, chest pain. She has had no appetite, but no vomiting or diarrhea. She has had no bleeding. In the Emergency Room, she was noted to have an abnormal ECG. Cardiology consultation was requested. PAST MEDICAL HISTORY: She has no other major surgical procedures. She does have a history of hypertension, takes clonidine occasionally. No history of diabetes. She has had back surgery in the past. FAMILY HISTORY: She is adopted. SOCIAL HISTORY: No smoking or alcohol abuse. REVIEW OF SYSTEMS: She has had no history of stroke, asthma, liver disease, kidney disease, cancer,or psychiatric illness. PHYSICAL EXAMINATION: GENERAL: Reveals an elderly frail-appearing black female, lying in bed. She appeared in no distress. VITAL SIGNS: She had a blood pressure of 110/70, pulse is 120. She is afebrile. HEENT: She was anicteric. Conjunctivae pink. Mucous membranes moist. NECK: Veins are nondistended. CHEST: Clear to auscultation. CARDIOVASCULAR: Regular, tachycardia. No significant murmur. ABDOMEN: Soft. EXTREMITIES: [place] [address] CONSULTATION Name: JIN MATAMOROS Room: [address]#: [id number] Admission: 06/10/19 Attend Phys: Corin Nunez MD Discharge: Date of : 63 Report #: [id number] SKIN: Warm and dry. RADIOLOGICAL DATA: ECG showed a sinus tachycardia, early transition, occasional P wave. There is no significant ST or T wave change noted. Her workup in the Emergency Room today, she had a portable chest x-ray that showed normal heart size, clear lung car. LABORATORY DATA: In the Emergency Room today, sodium 136, potassium 3.2, creatinine 0.7. Liver function studies were normal. Albumin is 2.6. Troponin 0.06. TSH 2.5, T4 1.3. Her white blood cell count 5.1, hematocrit 41.3. IMPRESSION AND RECOMMENDATIONS: 1. Sinus tachycardia. I would look for occult infection. There is no evidence of anemia. The patient may be dehydrated. 2. Cerebral palsy. The patient confined to wheelchair. 3. Total deafness. The patient is able to read sign language. 4. History of hypertension. The patient has taken clonidine in the past. <ELECTRONICALLY SIGNED> By: Bayron Osman MD, FACC 06/11/19 [id number] Osman MD, FACC /nt
[2019-06-11 12:12] VITALS: BP 99/71
[2019-06-11 12:41] LABS: MAGNESIUM 1.5 mg/dL (1.8-2.4)
[2019-06-11 12:42] LABS: POTASSIUM 4.3 mmol/L (3.5-5.1)
--- NOTE | 2019-06-11 13:55 | NUR ---
SW called pt guardian, Pamela, and completed initial assessment, introduced self and SW role and discussed safe dc planning. Pt continues to live in [facility] with 24 hr caregivers. Pt has wc and hx of [facility]. Pamela did not know of any dc planning needs at this time; SW/CM to continue to follow to assist with safe dc planning if needs arise.
[2019-06-11 16:08] VITALS: BP 100/77
[2019-06-11 21:50] VITALS: BP 107/61
[2019-06-12] VITALS (7 sets, daily range): BP systolic 101–146; BP diastolic 62–79
[2019-06-12 02:07] LABS: GLYCOHEMOGLOBIN (HGB A1C) 4.7 % (4.8-5.6)
--- NOTE | 2019-06-12 04:40 | NUR ---
ASSUMED CARE OF PT 06/11/19 AT APPROX 1930, VSS, PT TURNED Q2H, SR TO SINUS TACH ON MONITOR, IV FLUIDS INFUSING. NO COMPLAINTS OF PAIN THIS SHIFT. ASSESSMENTS AND HOURLY ROUNDINGS COMPLETED. WILL CONTINUE TO MONITOR.
[2019-06-12 08:05] LABS: HEMATOCRIT 35.1 % (37.0-47.0); HEMOGLOBIN 11.3 gm/dL (12.0-15.0); MCH 29.7 pg (26.0-34.0); MCHC 32.3 g/dL (28.0-37.0); MPV 9.6 fl. (7.2-11.1); RBC 3.81 mil/uL (4.20-5.00); WBC 4.7 thou/uL (4.0-11.0)
[2019-06-12 08:06] LABS: CALCIUM 8.6 mg/dL (8.5-10.1); CREATININE 0.4 mg/dL (0.6-1.3); POTASSIUM 4.2 mmol/L (3.5-5.1)
--- NOTE | 2019-06-12 18:05 | NUR ---
PATIENT RESTING IN BED. PATIENT IS NON-VERBAL/DEAF. PATIENT DOES NOT APPEAR TO HAVE PAIN. PATIENT TOO MEDICATIONS WITHOUT INCIDENT. PATIENT HAS BEEN ASSISTED WITH MEALS. PATIENT REPOSITIONED IN BED. PATIENT ON HAND PAINT MIXER WITH HEART RATE 90-120'S. BED ALARM IS ON. WILL ILSA TO MONITOR.
[2019-06-13 03:25] LABS: ABSOLUTE EOSINOPHILS 0.2 thou/uL (0.0-0.7); ABSOLUTE LYMPHOCYTES 1.6 thou/uL (0.8-5.3); ABSOLUTE MONOCYTES 0.7 thou/uL (0.0-1.2); BASOPHILS 0.6 %; EOSINOPHILS 2.9 %; HEMATOCRIT 31.7 % (37.0-47.0); HEMOGLOBIN 10.7 gm/dL (12.0-15.0); LYMPHOCYTES 24.3 %; MCH 30.7 pg (26.0-34.0); MCHC 33.6 g/dL (28.0-37.0); MCV 91.1 fL (80.0-100.0); MONOCYTES 10.5 %; MPV 9.8 fl. (7.2-11.1); NUCLEATED RBCS 0 /100WBC; PLATELET COUNT* 174 thou/uL (150-400); POLYS 61.7 %; RBC 3.48 mil/uL (4.20-5.00); WBC 6.5 thou/uL (4.0-11.0)
[2019-06-13 04:00] VITALS: BP 103/58
--- NOTE | 2019-06-13 04:24 | NUR ---
ASSUMED CARE OF PT 06/12/19 AT APPROX 1930. PT AWAKE AND ALERT, ON ROOM AIR, VSS, PT TURNED Q2H. PT SINUS RYTHUM ON MONITOR. IV FLUIDS INFUSING ORDERED, ASSESSMENTS AND HOURLY ROUNDINGS COMPLETED. WILL CONTINUE TO MONITOR.
[2019-06-13 08:00] VITALS: BP 102/67
[2019-06-13 11:44] VITALS: BP 105/68
--- NOTE | 2019-06-13 13:30 | NUR ---
SPOKE WITH PAYAL/CECE [id number]. SHE GAVE CM PHARMACY THEY USE FOR THEIR RESIDENTS MEDS [phone]. ALSO INFROMED HER OF 1530 AMBULANCE GINNER TIME HERE. SPOKE WITH DAX/MAUREEN. INFORMED HER I WAS FAXING 2 NEW SCRIPTS TO HER. CHECKED BACK WITH HER AND SHE CONFIRMED RECEIVING THEM. SHE SAID THEY WILL BE SENT OUT TODAY.
[2019-06-13 14:41] VITALS: BP 105/68
[2019-06-13 15:08] VITALS: BP 105/68
[2019-06-13] MEDS ORDERED: TOPROL XL25 MG PO (15:10)
[2019-06-13] MEDS ORDERED: TRAMADOL 50 MG50 MG PO (15:11)
--- NOTE | 2019-06-13 15:11 | NUR ---
FAXED [facility] THE DISCHARGE ORDERS, SUMMARY, PROGRESS NOTES, AND MEDS. CONFIRMED WITH CHUCKY/INTAKE AT [facility] THAT PATIENT IS ACTIVE STATUS WITH THEM AND WILL CONTINUE PATIENT'S CARE. CONTACTED CE[facility] MARCANO (LONG TERM) AND SPOKE TO ANDRADE/HOME THEATER INSTALLER REGARDING PATIENT'S TIME OF ARRIVAL BETWEEN 15:30-16:00. CM CONTACTED PAYAL-NUTRITION PROFESSOR OF [facility] REGARDING DISCHARGE ARRANGEMENTS. [facility] TO CORNER BEAD OPERATOR PATIENT AT 15:30. DCP CONTACTED MILAGROS/LEGAL GUARDIAN ON DISCHARGE PLANS AND HOME HEALTH. [facility] [phone]; [phone] CHUCKY/INTAKE [facility] LONG TERM [phone]; PAYAL/NUTRITION PROFESSOR [phone]
--- NOTE | 2019-06-13 15:40 | NUR ---
RECEIVED REPORT FROM LAMINE HINKLE. ASSUMED CARE OF PT AROUND 0730. PT AWAKE AND ALERT, DEAF AND MUTE. PT IS ABLE TO USE LIMITED SIGN LANGUAGE TO COMMUNICATED AND MAKE NEEDS KNOWN. AM ASSESSMENT AND VITALS COMPLETED CHARTED. MEDS PER EMAR. PT INCONTINENT OF 2 BMS THIS SHIFT - PT CLEANED AND LINENS CHANGED. PT DENIED PAIN THIS SHIFT TO RN, AND NO APPARENT PAIN NOTED. PT DID REPORT PAIN TO DR THIS AM HOWEVER. TOOK PO PAIN MEDICATION IN TO PT BUT PT SPIT IT OUT TWICE. PT TOLERATING DIET WITH MINIMAL ASSISTANCE. DISCHARGE ORDERS RECEIVED. DISCHARGE COMPLETED DOCUMENTED. DISCHARGE AND SCRIPTS PLACED IN PACKET FOR FACILITY. PACKET SENT WITH AMBULANCE STAFF. IV AND FREIGHT BOOKER REMOVED. PURPLE BLANKET SENT BACK WITH PT. PT LEFT UNIT IN AMBULANCE CART WITH AMBULANCE STAFF. PT LEFT HOSPITAL IN AMBULANCE.
== END 2019-06-13 15:35 | disposition home health service (06) | DRG 308 ==
LOC: M.ERS 10:32 → M.TBA-ER 12:50 → M.2W 12:50
PROVIDERS: Emergency Medicine Emergency Medical Services; Internal Medicine; ADMIT Internal Medicine
DX: R00.0 Tachycardia, unspecified (principal); E43 Unspecified severe protein-calorie malnutrition; Z68.1 Body mass index [BMI] 19.9 or less, adult; G80.9 Cerebral palsy, unspecified; H91.90 Unspecified hearing loss, unspecified ear; I10 Essential (primary) hypertension; M25.552 Pain in left hip; Z79.899 Other long term (current) drug therapy; Z88.5 Allergy status to narcotic agent; Z88.8 Allergy status to other drugs, medicaments and biological substances